=== PATIENT | male | born 1960 | race Caucasian/White ===

== ENCOUNTER 2017-01-01 16:27 | Emergency (ER) | payer BC, MEDICAID ==
[2017-01-01 16:53] VITALS: BP 158/95
[2017-01-01] MEDS ORDERED: Lidocaine 2% Viscous Solution 15 ML Cup PO ONE (16:55)
[2017-01-01] MEDS ORDERED: Benzocaine 20% Topical Spray UD MUCMEM ONE (16:55)
--- NOTE | 2017-01-01 17:21 | EDM.PDOC ---
<Lonny Hemphilleet - Last Filed: 01/01/17 17:22> ED HPI GENERAL MEDICAL PROBLEM - General Chief Complaint: ENT Problem Stated Complaint: PT HAS TOOTHACHE Time Seen by Provider: 01/01/17 16:30 - History of Present Illness INITIAL COMMENTS - FREE TEXT/NARRATIVE: This is a 48 year old male with a past medical history significant for type 2 diabetes presenting to the ER complaining of tooth pain. Patient states that he has had poor dentition for the last 20 years. He tells me that he had a tooth extraction 20 years ago by a dentist which resulted in only partial removal of the tooth. He has been experiencing constant pain in that location ever since. The pain is located over his third molar, radiating to his left ear. The pain is exacerbated with any sort of palpation of the surrounding area or chewing on food. He tells me that he has been taking Motrin over the counter 5-6x per day for the past week that has been mildly helping. He denies any fevers, chills, nausea, or vomiting. Left Lower Tooth/Teeth Pain Score (Numeric/FACES): 8 - Related Data Allergies Allergy/AdvReac Type Severity Reaction Status Date / Time No Known Allergies Allergy Verified 01/01/17 16:41 Home Meds: Home Meds Amoxicillin 500 mg PO BID #14 tab 01/01/17 [Rx] Aspirin 1 tab PO DAILY 01/01/17 [History] Insulin Aspart [NovoLOG] 01/01/17 [History] Insulin Glarg,Human.Rec.Analog [Lantus] 01/01/17 [History] Lisinopril 25 mg PO DAILY 01/01/17 [History] Past Medical History Endocrine/Metabolic History: Reports: Diabetes, Type II - Infectious Disease History Infectious Disease History: Reports: Chicken Pox - Past Surgical History GI Surgical History: Reports: Appendectomy, Cholecystectomy Social & Family History - Tobacco Use Smoking Status *Q: Never Smoker Second Hand Smoke Exposure: No ED ROS ENT - Review of Systems Constitutional: Denies: Fever, Chills, Weakness, Fatigue HEENT: Reports: Dental Pain. Denies: Eye Pain, Throat Pain, Throat Swelling, Vision Change Respiratory: Denies: Shortness of Breath, Wheezing, Pleuritic Chest Pain, Cough Cardiovascular: Denies: Chest Pain, Blood Pressure Problem Endocrine: Reports: Other (Poorly controlled type 2 diabetes) GI/Abdominal: Denies: Abdominal Pain, Diarrhea, Decreased Appetite, Nausea, Vomiting Musculoskeletal: Denies: Neck Pain, Shoulder Pain ED EXAM, ENT - Physical Exam Exam Limited By: No Limitations General Appearance: Alert, WD/WN, No Apparent Distress Eye Exam: Bilateral Eye: EOMI, PERRL Ears: Normal External Exam, Normal Canal, Hearing Grossly Normal, Normal TMs Nose: Normal Inspection, Normal Mucousa, No Blood Mouth/Throat: Gum Swelling, Other (Very poor dentition appreciated. Pain reproducible from soft palpation over the third molar. No obvious abscess visualized. No active bleeding. Throat was clear without erythema or exudates. Oral mucosa appears moist, pink.) Head: Atraumatic, Normocephalic Neck: Other (Tenderness to palpation over the left jaw and neck anteriorly. + anterior cervical lymphadenopathy appreciated on left side.) Respiratory/Chest: No Respiratory Distress, Lungs Clear, Normal Breath Sounds, No Accessory Muscle Use Cardiovascular: Normal Peripheral Pulses, Regular Rate, Rhythm, No Edema, No JVD GI/Abdominal: Normal Bowel Sounds, Soft, No Organomegaly Extremities: Normal Inspection, Normal Range of Motion, Non-Tender Neurological: Alert, Oriented Course - Vital Signs Last Recorded V/S: Last Vital Signs Temp 36.5 C 01/01/17 16:43 Pulse 83 01/01/17 16:43 Resp 18 01/01/17 16:43 BP 158/95 H 01/01/17 16:43 Pulse Ox 99 01/01/17 16:43 - Orders/Labs/Meds Meds: Medications Discontinued Medications Generic Name Dose Route Start Last Admin Trade Name Agustinq PRN Reason Stop Dose Admin Benzocaine 2 each 01/01/17 16:55 01/01/17 17:10 Hurricaine One 20% MUCMEM 01/01/17 16:56 2 each ONETIME ONE Administration Lidocaine HCl 15 ml 01/01/17 16:55 01/01/17 17:10 Xylocaine 2% Viscous PO 01/01/17 16:56 15 ml ONETIME ONE Administration Departure - Departure Time of Disposition: 18:30 Disposition: Home, Self-Care 01 Condition: Good Clinical Impression: Tooth pain - Discharge Information Prescriptions: Amoxicillin 500 mg PO BID #14 tab Instructions: Dental Care and Dentist Visits Referrals: PCP,None [Primary Care Provider] - 1 Day (Follow up with Dr. Marcin Hemphill at the residency clinic. ) Forms: ED Department Discharge Additional Instructions: The following information is given to patients seen in the emergency department who are being discharged to home. This information is to outline your options for follow-up care. We provide all patients seen in our emergency department with a follow-up referral. The need for follow-up, as well as the timing and circumstances, are variable depending upon the specifics of your emergency department visit. If you don't have a primary care physician on staff, we will provide you with a referral. We always advise you to contact your personal physician following an emergency department visit to inform them of the circumstance of the visit and for follow-up with them and/or the need for any referrals to a consulting specialist. The emergency department will also refer you to a specialist when appropriate. This referral assures that you have the opportunity for followup care with a specialist. All of these measure are taken in an effort to provide you with optimal care, which includes your followup. Under all circumstances we always encourage you to contact your private physician who remains a resource for coordinating your care. When calling for followup care, please make the office aware that this follow-up is from your recent emergency room visit. If for any reason you are refused follow-up, please contact the [facility] emergency department at and ask to speak to the emergency department charge nurse. [facility] Primary care- [place] [address] Please take antibiotics as prescribed and use dental balls you have been given today as shown. Please call the clinic tomorrow to follow-up with Dr. Hemphill as he discussed with you. Return to ER as needed and as discussed <Jennifer Mclean - Last Filed: 01/01/17 17:44> ED HPI GENERAL MEDICAL PROBLEM - History of Present Illness INITIAL COMMENTS - FREE TEXT/NARRATIVE: This is Dr. Mclean dictating an addendum note as supervising physician on this case. I agree with history and physical as above and I personally seen and examined this patient. He doesn't have any visible facial swelling but he does have some anterior cervical adenopathy. The area of the molar in question is mildly swollen but not fluctuant and there appears to be a piece of remnant tooth in this region. The patient does have a history of diabetes and says that his blood sugar tends to run in the 300s and this is not atypical for him. He doesn't want evaluation for his diabetes and referred to follow up in the clinic and he will be following up with Dr. Hemphill in his clinic for further evaluation and care of this problem. We will treat his dental issues with amoxicillin and dental balls. Impression dental pain/early dental infection due to impacted tooth remnant ED ROS ENT - Review of Systems Review Of Systems: ROS reveals no pertinent complaints other than HPI. ED EXAM, ENT - Physical Exam Exam: See Below (See dictation)
== END 2017-01-01 17:46 | disposition home or self-care (01) ==
LOC: EDBD → MW.ED 16:27
DX: K08.89 Other specified disorders of teeth and supporting structures (principal); E11.9 Type 2 diabetes mellitus without complications; Z79.82 Long term (current) use of aspirin; Z79.4 Long term (current) use of insulin; Z79.899 Other long term (current) drug therapy; Z90.49 Acquired absence of other specified parts of digestive tract
CPT/HCPCS: 99282; A9270; 99283

== ENCOUNTER 2017-01-23 09:22 | Emergency (ER) | payer MEDICAID, OTHER ==
[2017-01-23] MEDS ORDERED: Ketorolac 60 MG/2 ML SDV IM ONE (09:44)
--- NOTE | 2017-01-23 09:44 | EDM.PDOC ---
ED HPI GENERAL MEDICAL PROBLEM - General Chief Complaint: Back Pain or Injury Stated Complaint: LOWER BACK PAIN Time Seen by Provider: 01/23/17 09:32 - History of Present Illness INITIAL COMMENTS - FREE TEXT/NARRATIVE: HISTORY AND PHYSICAL: History of present illness: Patient's 48-year-old white male presents with concern of back injury states he was lifting a tire at work and he turned and has some discomfort on his right lower back and left upper back he's had similar episodes in the past is no numbness no weakness no incontinence or potential bowel or bladder was no direct trauma Review of systems: As per history of present illness and below otherwise all systems reviewed and negative. Past medical history: As per history of present illness and as reviewed below otherwise noncontributory. Surgical history: As per history of present illness and as reviewed below otherwise noncontributory. Social history: No reported history of drug or alcohol abuse. Family history: As per history of present illness and as reviewed below otherwise noncontributory. Physical exam: HEENT: Atraumatic, normocephalic, pupils reactive, negative for conjunctival pallor or scleral icterus, mucous membranes moist, throat clear, neck supple, nontender, trachea midline. Lungs: Clear to auscultation, breath sounds equal bilaterally, chest nontender. Heart: S1S2, regular, negative for clicks, rubs, or JVD. Abdomen: Soft, nondistended, nontender. Negative for masses or hepatosplenomegaly. Negative for costovertebral tenderness. Pelvis: Stable nontender. Genitourinary: Deferred. Rectal: Deferred. Extremities: Atraumatic, negative for cords or calf pain. Neurovascular unremarkable. Neuro: Awake, alert, oriented. Cranial nerves II through XII unremarkable. Cerebellum unremarkable. Motor and sensory unremarkable throughout. Exam nonfocal. Back: Patient is some mild paravertebral tenderness in the left thoracic spine and paravertebral tenderness of the right lumbar spine is no vertebral body or point tenderness patient able stand on his toes back on his heels deep tendon reflexes motor and sensory are normal Diagnostics: X-ray thoracic spine x-ray lumbar spine Therapeutics: Toradol 60 mg IM Impression: #1 thoracic or lumbar strain Definitive disposition and diagnosis as appropriate pending reevaluation and review of above. Right Back Pain Score (Numeric/FACES): 10 - Related Data Allergies Allergy/AdvReac Type Severity Reaction Status Date / Time No Known Allergies Allergy Verified 01/23/17 09:38 Home Meds: Home Meds Amoxicillin 500 mg PO BID #14 tab 01/01/17 [Rx] Aspirin 1 tab PO DAILY 01/01/17 [History] Insulin Aspart [NovoLOG] 01/01/17 [History] Insulin Glarg,Human.Rec.Analog [Lantus] 01/01/17 [History] Lisinopril 25 mg PO DAILY 01/01/17 [History] Past Medical History Endocrine/Metabolic History: Reports: Diabetes, Type II - Infectious Disease History Infectious Disease History: Reports: Chicken Pox - Past Surgical History GI Surgical History: Reports: Appendectomy, Cholecystectomy Social & Family History - Family History Family Medical History: Noncontributory - Tobacco Use Smoking Status *Q: Light Tobacco Smoker Years of Tobacco use: 20 Packs/Tins Daily: 1 Second Hand Smoke Exposure: No - Caffeine Use Caffeine Use: Reports: None - Recreational Drug Use Recreational Drug Use: No ED ROS GENERAL - Review of Systems Review Of Systems: ROS reveals no pertinent complaints other than HPI. ED EXAM, GENERAL - Physical Exam Exam: See Below (See dictation) Course - Vital Signs Last Recorded V/S: Last Vital Signs Temp 36.6 C 01/23/17 09:36 Pulse 95 01/23/17 09:36 Resp 20 01/23/17 09:36 BP 181/97 H 01/23/17 09:36 Pulse Ox 95 01/23/17 09:36 Departure - Departure Time of Disposition: 09:43 Disposition: Home, Self-Care 01 Condition: Good Clinical Impression: Back pain, Back pain of thoracolumbar region - Discharge Information Referrals: PCP,None [Primary Care Provider] - Additional Instructions: The following information is given to patients seen in the emergency department who are being discharged to home. This information is to outline your options for follow-up care. We provide all patients seen in our emergency department with a follow-up referral. The need for follow-up, as well as the timing and circumstances, are variable depending upon the specifics of your emergency department visit. If you don't have a primary care physician on staff, we will provide you with a referral. We always advise you to contact your personal physician following an emergency department visit to inform them of the circumstance of the visit and for follow-up with them and/or the need for any referrals to a consulting specialist. The emergency department will also refer you to a specialist when appropriate. This referral assures that you have the opportunity for followup care with a specialist. All of these measure are taken in an effort to provide you with optimal care, which includes your followup. Under all circumstances we always encourage you to contact your private physician who remains a resource for coordinating your care. When calling for followup care, please make the office aware that this follow-up is from your recent emergency room visit. If for any reason you are refused follow-up, please contact the [facility] emergency department at and asked to speak to the emergency department charge nurse. [id number] [address] [place] [id number] Motrin/Tylenol as directed follow-up clinic above call to schedule routine appointment return as needed as discussed
--- NOTE | 2017-01-23 11:09 | CR ---
EXAMINATION: Lumbar and thoracolumbar radiographs HISTORY: Pain COMPARISON: None TECHNIQUE: AP and lateral views FINDINGS: The thoracolumbar spinal alignment appears normal. The vertebral body heights appear mainta ined. There is no fracture or dislocation. The SI joints are symmetric. Bone mineralization is normal . Mild marginal osteophytes are noted. Clips project over the right upper quadrant. IMPRESSION: No acute osseous abnormalities identified.
[2017-01-23 11:32] VITALS: BP 162/97
== END 2017-01-23 11:30 | disposition home or self-care (01) ==
LOC: MW.ED 09:22
DX: S39.012A Strain of muscle, fascia and tendon of lower back, initial encounter (principal); S29.012A Strain of muscle and tendon of back wall of thorax, initial encounter; E11.9 Type 2 diabetes mellitus without complications; F17.210 Nicotine dependence, cigarettes, uncomplicated; Z79.4 Long term (current) use of insulin; Z79.82 Long term (current) use of aspirin; Z79.899 Other long term (current) drug therapy; Z90.49 Acquired absence of other specified parts of digestive tract; X50.0XXA Overexertion from strenuous movement or load, initial encounter
CPT/HCPCS: 72080; 72100; 96372; 99283; J1885; 99282

== ENCOUNTER 2020-09-27 11:23 | Emergency (ER) | payer MEDICAID ==
--- NOTE | 2020-09-27 11:31 | EDM.PDOC ---
<Jefry Thao - Last Filed: 09/27/20 12:44> ED HPI GENERAL MEDICAL PROBLEM - General Chief Complaint: General Stated Complaint: COUGHING SOB Time Seen by Provider: 09/27/20 11:30 - History of Present Illness INITIAL COMMENTS - FREE TEXT/NARRATIVE: This is a 52-year-old man with a past medical history of diabetes mellitus, hypertension who presents to the emergency department with epigastric and right upper quadrant pain and diaphoresis. I was involved in care as initial EKG showed STEMI. At the time of my evaluation the patient appeared comfortable and was mildly diaphoretic. On hospital monitor the patient was sinus rhythm without any tachycardia. Pulse oximetry with good waveform was appropriate at 98% on room air. Time: 1158 Twelve-lead EKG interpreted by myself. [Normal sinus rhythm] at a rate of 80 beats per minute. [Normal] axis. MA interval is 135 ms. QRS duration is [address] segments are elevated greater than 1 mm in leads II, 3, aVF without any obvious reciprocal changes.. [No T wave inversions] [No Q waves present]. [Hypertrophy not noted]. No prior EKGs in our system. Interpretation: Acute inferior ST elevation PR After the initial EKG I did contact [facility] in [place] and spoke with Dr. Mcconnell who reviewed the EKG and recommended aspirin, TNKase given that there is no Q waves in the patient will be flown taking greater than 90 minutes to arrive for PCI, and heparin. We did discuss antiplatelet and at this time he does not recommend Brilinta or Plavix at this time. Celeste Betts [facility] contacted emergency department Dr. Sweeney who is aware of the patient transfer. We did contact [employer] and there estimated time of arrival at our emergency department is 20 minutes. I did review contraindications to TNKase with the patient and he has no absolute contraindication at this time. Consent was obtained and is placed in chart. After TNKase administration we did obtain a repeat EKG. At this time flight was at bedside for transport. Time: 1230 Twelve-lead EKG interpreted by myself. [Normal sinus rhythm] at a rate of 78 beats per minute. [Normal] axis. MA interval is 141 ms. QRS duration is [address] segments are elevated greater than 1 mm in leads II, 3, aVF without any obvious reciprocal changes.. [No T wave inversions] [No Q waves present]. [Hypertrophy not noted]. [No changes demonstrated from prior EKG dated] today. Interpretation: Acute inferior ST elevation PR The radiological images were viewed by myself along with reading the report from the radiologist. Chest x-ray does not reveal any acute cardiopulmonary process. DISPOSITION: The patient was flown to [facility] in [place] in stable but serious condition CONDITION: Serious PROCEDURES: TNKase administration, cardiac monitoring interpretation, pulse oximetry interpretation FINAL IMPRESSION(S)/DIAGNOSES: 1. Acute ST elevation PR, inferior Jefry Thao M.D. Critical Care Procedure Note Authorized and performed by: Jefry Thao M.D. Critical Care Time: 35 minutes Due to a high probability of clinically significant, life threatening deterioration, the patient required my highest level of preparedness to intervene emergently and I personally spent this critical care time directly and personally managing the patient. This critical care time included obtaining a history, examining the patient, pulse oximetry; ordering and review of studies; arranging urgent treatment with development of a management plan; evaluation of a patients reponse to treatment; frequent assessment; and discussions with other providers. This critical care time was performed to assess and manage the high probability of imminent, life threatening deterioration that could result in multiorgan failure. It was exclusive of separate billable procedures and treating other patients. Please see MDM section and rest of the note for further information on patient assessment and treatment. Please see MDM section and rest of the note for further information on patient assessment and treatment. - Related Data Allergies Allergy/AdvReac Type Severity Reaction Status Date / Time diphenhydramine Allergy Hives Verified 09/27/20 11:41 [From Benadryl] Home Meds: Home Meds Aspirin 1 tab PO DAILY 01/01/17 [History] Insulin Aspart [NovoLOG] 40 units SQ BEDTIME 01/01/17 [History] Insulin Glarg,Human.Rec.Analog [Lantus] 0 injection SQ TIDMEALS 01/01/17 [History] Lisinopril 10 mg PO DAILY 01/01/17 [History] Gabapentin [Neurontin] 600 mg PO TID 09/27/20 [History] glipiZIDE [Glucotrol XL] 10 mg PO DAILY 09/27/20 [History] metFORMIN [Glucophage XR] 1,000 mg PO BID 09/27/20 [History] Departure - Departure Disposition: DC/Tfer to [facility] Clinical Impression: STEMI (ST elevation myocardial infarction) Qualifiers: Involved coronary artery: unspecified coronary artery Qualified Code(s): I21.3 - ST elevation (STEMI) myocardial infarction of unspecified site - Discharge Information Referrals: PCP,None [Primary Care Provider] - Forms: ED Department Discharge <Josep Betts Neda - Last Filed: 09/27/20 12:51> ED HPI GENERAL MEDICAL PROBLEM - General Source of Information: Reports: Patient History Limitations: Reports: No Limitations - History of Present Illness INITIAL COMMENTS - FREE TEXT/NARRATIVE: HISTORY AND PHYSICAL: History of present illness: Patient is a 52-year-old male who presents to the emergency room with complaints of cough, right upper abd/epigastric/lower mid-sternal chest wall pain, subjective fever/chills, and diarrhea over the past 7 days. Patient states that he has a "chest cold" and is coughing frequently. He does appear diaphoretic, he states that he has subjective fever and chills although has not checked his temperature at any point. He is pointing to his right upper quadrant into his epigastric/lower mid sternum and states he has had pain here for the past 1 week. He also attributes the pain to having frequent loose stools. Patient states he occasionally has pain to left posterior neck (on going for 6 months) and will occasionally have pain when he turns his neck with some vision changes. Patient denies any headache, syncope or near syncope. Denies any hemoptysis, shortness of breath or cough. Denies any nausea, vomiting, constipation or dysuria. Has not noted any blood in urine or stool. Patient has been eating and drinking appropriately. PMH of HTN and type II diabetes. Review of systems: As per history of present illness and below otherwise all systems reviewed and negative. Past medical history: As per history of present illness and as reviewed below otherwise noncontributory. Surgical history: As per history of present illness and as reviewed below otherwise noncontributory. Social history: See social history for further information Family history: As per history of present illness and as reviewed below otherwise noncontributory. Physical exam: General: Well developed and well nourished 52 year old male. Alert and orientated x 3. Patient appears diaphoretic but nontoxic. Vital signs have been reviewed by me, blood pressure is elevate (history of HTN). Nursing notes were reviewed. HEENT: Atraumatic, normocephalic, pupils equal and reactive bilaterally, negative for conjunctival pallor or scleral icterus, mucous membranes tacky/dry, TMs normal bilaterally, throat clear, neck supple, nontender, trachea midline. No drooling or trismus noted. No meningeal signs. No hot potato voice noted. Lungs: Clear to auscultation bilaterally. No wheezes, rales, or rhonchi. Midsternal chest tenderness. Normal work of breathing, no accessory muscles used. Heart: S1S2, regular rate and rhythm without overt murmur, gallops, or rubs. No JVD. No peripheral edema Abdomen: Soft, nondistended, right upper quadrant tenderness/epigastric tenderness. Normoactive bowel sounds. Negative for masses or costovertebral tenderness. Skin: Diaphoretic, intact, warm to touch. No lesions or rashes noted. Hematologic: No petechiae or purpra. Mucosa appropriate color and normal nail bed color and refill. Extremities: Atraumatic, moves all extremities per self without difficulty or deficits, negative for cords or calf pain. Neurovascular unremarkable. Neuro: Awake, alert, oriented. Cranial nerves II through XII unremarkable. Cerebellum unremarkable. Motor and sensory unremarkable throughout. Exam nonfocal. Psychiatric: Mood and affect are appropriate. Normal thought process. Answering questions appropriately. Notes: *This patient was seen and evaluated during the 2019 SARS-CoV-2 novel coronavirus pandemic period. Community viral transmission is ongoing at time of this encounter and the emergency department is operating under pandemic response procedures. Patient's EKG shows ST elevation in II, III, AVF. No previous EKG's available for comparison. I did have Dr Thao involved in this case as he has now become more complex. Consulted with Dr Sweeney and Dr Mcconnell at [facility] in [place] for transfer. Patient is aware of seriousness of findings and need for transfer. Dr Mcconnell has given some additional recommendations (see Dr Thao's note). Patient will be transfered to [facility] via flight crew. Diagnostics: CBC, CMP, Lipase, Troponin, PT/INR, CXR, EKG, COVID, IV x2, [employer]: ASA, Heparin, TNKase, IV Impression: STEMI Plan: Transfer to [facility] in [place] via flight Definitive disposition and diagnosis as appropriate pending reevaluation and review of above. epigastric Pain Score (Numeric/FACES): 10 Past Medical History Endocrine/Metabolic History: Reports: Diabetes, Type II - Infectious Disease History Infectious Disease History: Reports: Chicken Pox - Past Surgical History GI Surgical History: Reports: Appendectomy, Cholecystectomy Social & Family History - Family History Family Medical History: No Pertinent Family History - Caffeine Use Caffeine Use: Reports: None ED ROS GENERAL - Review of Systems Review Of Systems: Comprehensive ROS is negative, except as noted in HPI. ED EXAM, GENERAL - Physical Exam Exam: See Below (See dictation) Course - Vital Signs Last Recorded V/S: Last Vital Signs Temp 95.1 F L 09/27/20 11:43 Pulse 81 09/27/20 11:43 Resp 18 09/27/20 11:43 BP 149/112 H 09/27/20 11:43 Pulse Ox 97 09/27/20 11:43 - Orders/Labs/Meds Orders: Active Orders 24 hr Category Date Time Status EKG Documentation Completion [RC] STAT Care 09/27/20 11:49 Active COMPREHENSIVE METABOLIC PN,CMP [CHEM] Stat Lab 09/27/20 11:57 Received COVID-19/FLU A+B [MOLEC] Stat Lab 09/27/20 11:49 Ordered LIPASE [CHEM] Stat Lab 09/27/20 11:57 Received PTT,PARTIAL THROMBOPLSTIN TIME [COAG] Q6 Lab 09/27/20 12:30 Ordered PTT,PARTIAL THROMBOPLSTIN TIME [COAG] Q6 Lab 09/27/20 18:30 Ordered PTT,PARTIAL THROMBOPLSTIN TIME [COAG] Q6 Lab 09/28/20 00:30 Ordered PTT,PARTIAL THROMBOPLSTIN TIME [COAG] Q6 Lab 09/28/20 06:30 Ordered PTT,PARTIAL THROMBOPLSTIN TIME [COAG] Q6 Lab 09/28/20 12:30 Ordered PTT,PARTIAL THROMBOPLSTIN TIME [COAG] Q6H Lab 09/28/20 18:30 Ordered PTT,PARTIAL THROMBOPLSTIN TIME [COAG] Q6 Lab 09/29/20 00:30 Ordered TROPONIN I [CHEM] Stat Lab 09/27/20 11:57 Received UA RFX JAC AND CULT IF INDIC [URIN] Stat Lab 09/27/20 11:49 Ordered Heparin Sodium/0.45% NaCl [Heparin 25,000 Units in 1/2 Med 09/27/20 12:30 Active NS 500 ML] 500 ml IV TITRATE Sodium Chloride 0.9% [Normal Saline] 1,000 ml Med 09/27/20 11:49 Active IV STAT Sodium Chloride 0.9% [Saline Flush] Med 09/27/20 12:03 Active 10 ml FLUSH ASDIRECTED PRN Sodium Chloride 0.9% [Saline Flush] Med 09/27/20 12:03 Active 2.5 ml FLUSH ASDIRECTED PRN Saline Lock Insert [OM.PC] Stat Oth 09/27/20 12:03 Ordered Medication Orders Sodium Chloride (Normal Saline) 1,000 mls @ 999 mls/hr IV STAT ONE Stop: 09/27/20 12:49 Last Admin: 09/27/20 12:06 Dose: 999 mls/hr Documented by: CALEB Heparin Sodium/Sodium Chloride (Heparin 25,000 Units In 1/2 Ns 500 Ml) 500 mls @ 19.595 mls/hr IV TITRATE TIMOTHY; Protocol Sodium Chloride (Sodium Chloride 0.9% 10 Ml Syringe) 10 ml FLUSH ASDIRECTED PRN PRN Reason: Keep Vein Open Last Admin: 09/27/20 12:07 Dose: 10 ml Documented by: CALEB Sodium Chloride (Sodium Chloride 0.9% 2.5 Ml Syringe) 2.5 ml FLUSH ASDIRECTED PRN PRN Reason: Keep Vein Open Last Admin: 09/27/20 12:07 Dose: 2.5 ml Documented by: CALEB Labs: Laboratory Tests 09/27/20 09/27/20 Range/Units 11:57 11:57 WBC 10.36 (4.0-11.0) K/uL RBC 5.09 (4.50-5.90) M/uL Hgb 15.3 (13.0-17.0) g/dL Hct 44.7 (38.0-50.0) % MCV 87.8 (80.0-98.0) fL MCH 30.1 (27.0-32.0) pg MCHC 34.2 (31.0-37.0) g/dL RDW Std Deviation 42.1 (28.0-62.0) fl RDW Coeff of Do 13 (11.0-15.0) % Plt Count 357 (150-400) K/uL MPV 9.50 (7.40-12.00) fL Neut % (Auto) 69.1 (48.0-80.0) % Lymph % (Auto) 20.1 (16.0-40.0) % [place] % (Auto) 7.4 (0.0-15.0) % Eos % (Auto) 3.1 (0.0-7.0) % Baso % (Auto) 0.3 (0.0-1.5) % Neut # (Auto) 7.2 H (1.4-5.7) K/uL Lymph # (Auto) 2.1 (0.6-2.4) K/uL [place] # (Auto) 0.8 (0.0-0.8) K/uL Eos # (Auto) 0.3 (0.0-0.7) K/uL Baso # (Auto) 0.0 (0.0-0.1) K/uL Nucleated RBC % 0.0 /100WBC Nucleated RBCs # 0 K/uL INR 1.00 APTT 24.6 (18.6-31.3) SEC Meds: Medications Generic Name Dose Route Start Last Admin Trade Name Freq PRN Reason Stop Dose Admin Sodium Chloride 1,000 mls @ 999 mls/hr 09/27/20 11:49 09/27/20 12:06 Normal Saline IV 09/27/20 12:49 999 mls/hr STAT ONE Administration Heparin Sodium/Sodium Chloride 500 mls @ 19.595 mls/hr 09/27/20 12:30 Heparin 25,000 Units In 1/2 Ns 500 Ml IV TITRATE TIMOTHY Protocol 12 UNITS/KG/HR Sodium Chloride 10 ml 09/27/20 12:03 09/27/20 12:07 Sodium Chloride 0.9% 10 Ml Syringe FLUSH 10 ml ASDIRECTED PRN Administration Keep Vein Open Sodium Chloride 2.5 ml 09/27/20 12:03 09/27/20 12:07 Sodium Chloride 0.9% 2.5 Ml Syringe FLUSH 2.5 ml ASDIRECTED PRN Administration Keep Vein Open Discontinued Medications Generic Name Dose Route Start Last Admin Trade Name Shelly PRN Reason Stop Dose Admin Aspirin 324 mg 09/27/20 12:03 09/27/20 12:06 Aspirin 81 Mg Tab.Chew PO 09/27/20 12:04 324 mg ONETIME ONE Administration Heparin Sodium (Porcine) Confirm 09/27/20 12:21 Heparin Sodium 5,000 Units/Ml Vial Administered 09/27/20 12:22 Dose 5,000 units .ROUTE .STK-MED ONE Heparin Sodium/Sodium Chloride Confirm 09/27/20 12:21 Heparin 25,000 Units In 1/2 Ns 500 Ml Administered 09/27/20 12:22 Dose 500 mls @ as directed .ROUTE .STK-MED ONE Tenecteplase Confirm 09/27/20 12:21 Tenecteplase 50 Mg Kit Administered 09/27/20 12:22 Dose 50 mg .ROUTE .STK-MED ONE Departure - Departure Time of Disposition: 12:40 Sepsis Event Note (ED) - Focused Exam Vital Signs: Vital Signs Temp Pulse Resp BP Pulse Ox 09/27/20 11:43 95.1 F L 81 18 149/112 H 97 - My Orders Last 24 Hours: My Active Orders 09/27/20 11:49 EKG Documentation Completion [RC] STAT COVID-19/FLU A+B [MOLEC] Stat UA RFX JAC AND CULT IF INDIC [URIN] Stat Sodium Chloride 0.9% [Normal Saline] 1,000 ml IV STAT 09/27/20 11:57 COMPREHENSIVE METABOLIC PN,CMP [CHEM] Stat LIPASE [CHEM] Stat TROPONIN I [CHEM] Stat 09/27/20 12:03 Sodium Chloride 0.9% [Saline Flush] 10 ml FLUSH ASDIRECTED PRN Sodium Chloride 0.9% [Saline Flush] 2.5 ml FLUSH ASDIRECTED PRN Saline Lock Insert [OM.PC] Stat - Assessment/Plan Last 24 Hours: My Active Orders 09/27/20 11:49 EKG Documentation Completion [RC] STAT COVID-19/FLU A+B [MOLEC] Stat UA RFX JAC AND CULT IF INDIC [URIN] Stat Sodium Chloride 0.9% [Normal Saline] 1,000 ml IV STAT 09/27/20 11:57 COMPREHENSIVE METABOLIC PN,CMP [CHEM] Stat LIPASE [CHEM] Stat TROPONIN I [CHEM] Stat 09/27/20 12:03 Sodium Chloride 0.9% [Saline Flush] 10 ml FLUSH ASDIRECTED PRN Sodium Chloride 0.9% [Saline Flush] 2.5 ml FLUSH ASDIRECTED PRN Saline Lock Insert [OM.PC] Stat
[2020-09-27] MEDS ORDERED: Sodium Chloride 0.9% 1,000 ML IV ONE (11:49)
[2020-09-27] MEDS ORDERED: Sodium Chloride 0.9% 2.5 ML Syringe FLUSH PRN (12:03)
[2020-09-27] MEDS ORDERED: Sodium Chloride 0.9% 10 ML Syringe FLUSH PRN (12:03)
[2020-09-27] MEDS ORDERED: Aspirin 81 MG Tab.Chew PO ONE (12:03)
[2020-09-27] MEDS ORDERED: Heparin Sodium 5,000 Units/ML Vial ONE (12:21)
[2020-09-27] MEDS ORDERED: Tenecteplase 50 MG Kit ONE (12:21)
[2020-09-27] MEDS ORDERED: Heparin Sodium/0.45% NaCl 500 ML ONE (12:21)
[2020-09-27] MEDS ORDERED: Heparin Sodium/0.45% NaCl 500 ML IV SCH (12:30)
--- NOTE | 2020-09-27 12:40 | CR ---
INDICATION: Cough; chest pain. COMPARISON: None. TECHNIQUE: Portable AP chest. FINDINGS: Normal size cardiac silhouette. Clear lung wilcox with no evidence of acute pneumonic infiltrates or CHF. No pneumothorax or pleural effusion. IMPRESSION: Negative portable AP chest. Dictated by Froylan Desouza MD @ 09/27/2020 12:38:[address] Froylan Desouza @ Sep 27 2020 12:38PM
[2020-09-27 12:47] LABS: BLOOD UREA NITROGEN,BUN 8 mg/dL (7.0-18.0); CARBON DIOXIDE,CO2 25.7 mmol/L (21.0-32.0); CHLORIDE,CL 96 mmol/L (98-107); GLUCOSE RANDOM 456 mg/dL (74-106); LIPASE 253 U/L (73-393); POTASSIUM,K 4.8 mmol/L (3.5-5.1); SODIUM,NA 132 mmol/L (136-148)
[2020-09-27] MEDS ORDERED: Tenecteplase 50 MG Kit IV STA (13:08)
[2020-09-27] MEDS ORDERED: Heparin Sodium 5,000 Units/ML Vial IVPUSH ONE (13:08)
[2020-09-27 14:01] VITALS: BP 171/85; PULSE 79
== END 2020-09-27 12:39 ==
LOC: MW.ED 11:23
DX: I21.3 ST elevation (STEMI) myocardial infarction of unspecified site (principal); E11.9 Type 2 diabetes mellitus without complications; Z88.6 Allergy status to analgesic agent; Z79.82 Long term (current) use of aspirin; Z79.4 Long term (current) use of insulin
CPT/HCPCS: 36415; 71045; 80053; 83690; 84484; 85025; 85610; 85730; 93005; 96374; 99285; A9270; J1644; J3101; J7030; 99291

== ENCOUNTER 2020-10-22 22:13 | Observation (INO) | payer MEDICAID ==
--- NOTE | 2020-10-22 22:33 | EDM.PDOC ---
ED HPI GENERAL MEDICAL PROBLEM - General Chief Complaint: General Stated Complaint: EMS ARRIVAL Time Seen by Provider: 10/22/20 22:20 Source of Information: Reports: Patient History Limitations: Reports: No Limitations - History of Present Illness INITIAL COMMENTS - FREE TEXT/NARRATIVE: Patient is a 52-year-old male presents today for left-sided chest pain. Patient with chest pain present for the past few weeks. The pain is more of irritation does raise his left arm at times. Patient has the pain is made worse with exertion. Nothing makes pain better. Patient reports taking aspirin this morning. Patient denies any shortness of breath fever chills or cough. - Related Data Allergies Allergy/AdvReac Type Severity Reaction Status Date / Time diphenhydramine Allergy Hives Verified 10/22/20 22:17 [From Benadryl] ibuprofen [From Motrin] Allergy Hives Verified 10/22/20 22:17 Home Meds: Home Meds Aspirin 1 tab PO DAILY 01/01/17 [History] Insulin Aspart [NovoLOG] 40 units SQ BEDTIME 01/01/17 [History] Insulin Glarg,Human.Rec.Analog [Lantus] 0 injection SQ TIDMEALS 01/01/17 [History] Lisinopril 10 mg PO DAILY 01/01/17 [History] Gabapentin [Neurontin] 600 mg PO TID 09/27/20 [History] glipiZIDE [Glucotrol XL] 10 mg PO DAILY 09/27/20 [History] metFORMIN [Glucophage XR] 1,000 mg PO BID 09/27/20 [History] Past Medical History HEENT History: Reports: None Cardiovascular History: Reports: Hypertension Respiratory History: Reports: None Gastrointestinal History: Reports: Bowel Obstruction Genitourinary History: Reports: None Musculoskeletal History: Reports: None Neurological History: Reports: None Psychiatric History: Reports: None Endocrine/Metabolic History: Reports: Diabetes, Type II Hematologic History: Reports: None Immunologic History: Reports: None Oncologic (Cancer) History: Reports: None Dermatologic History: Reports: None - Infectious Disease History Infectious Disease History: Reports: Chicken Pox - Past Surgical History Head Surgeries/Procedures: Reports: None HEENT Surgical History: Reports: None Cardiovascular Surgical History: Reports: None Respiratory Surgical History: Reports: None GI Surgical History: Reports: Appendectomy, Cholecystectomy Male Surgical History: Reports: None Endocrine Surgical History: Reports: None Neurological Surgical History: Reports: None Musculoskeletal Surgical History: Reports: None Oncologic Surgical History: Reports: None Dermatological Surgical History: Reports: None Social & Family History - Family History Family Medical History: No Pertinent Family History - Tobacco Use Tobacco Use Status *Q: Never Tobacco User - Caffeine Use Caffeine Use: Reports: None - Recreational Drug Use Recreational Drug Use: Yes Drug Use in Last 12 Months: Yes Recreational Drug Type: Reports: Marijuana/Hashish Recreational Drug Use Frequency: Binges ED ROS GENERAL - Review of Systems Review Of Systems: See Below Constitutional: Reports: No Symptoms HEENT: Reports: No Symptoms Respiratory: Reports: No Symptoms Cardiovascular: Reports: Chest Pain Endocrine: Reports: No Symptoms GI/Abdominal: Reports: No Symptoms : Reports: No Symptoms Musculoskeletal: Reports: No Symptoms Skin: Reports: No Symptoms Neurological: Reports: No Symptoms Psychiatric: Reports: No Symptoms Hematologic/Lymphatic: Reports: No Symptoms Immunologic: Reports: No Symptoms ED EXAM, GENERAL - Physical Exam Exam: See Below Exam Limited By: No Limitations General Appearance: Alert, WD/WN, No Apparent Distress Respiratory/Chest: No Respiratory Distress, Lungs Clear, Normal Breath Sounds Cardiovascular: Normal Peripheral Pulses, Regular Rate, Rhythm, No Edema GI/Abdominal: Normal Bowel Sounds, Soft, Non-Tender Extremities: Normal Inspection, Normal Range of Motion Neurological: Alert, Oriented, CN II-XII Intact, Normal Cognition #1 Interpretation EKG Date: 10/22/20 Time: 22:24 Rhythm: NSR Rate (Beats/Min): 68 ST-T: Elevated #2 Interpretation EKG Date: 10/23/20 Time: 02:25 Rhythm: NSR Rate (Beats/Min): 66 ST-T: Elevated Course - Vital Signs Last Recorded V/S: Last Vital Signs Temp 97 F 10/22/20 22:18 Pulse 86 10/22/20 22:18 Resp 18 10/22/20 22:18 BP 162/81 H 10/22/20 22:18 Pulse Ox 95 10/22/20 22:18 - Orders/Labs/Meds Orders: Active Orders 24 hr Category Date Time Status EKG 12 Lead [EKG Documentation Completion] [RC] STAT Care 10/23/20 01:59 Active EKG Documentation Completion [RC] STAT Care 10/22/20 22:30 Active Labs: Laboratory Tests 05/10/22/20 10/22/20 Range/Units 22:17 22:17 22:24 WBC 10.37 (4.0-11.0) K/uL RBC 4.87 (4.50-5.90) M/uL Hgb 14.6 (13.0-17.0) g/dL Hct 43.3 (38.0-50.0) % MCV 88.9 (80.0-98.0) fL MCH 30.0 (27.0-32.0) pg MCHC 33.7 (31.0-37.0) g/dL RDW Std Deviation 45.5 (28.0-62.0) fl RDW Coeff of Do 14 (11.0-15.0) % Plt Count 190 (150-400) K/uL MPV 10.00 (7.40-12.00) fL Neut % (Auto) 39.4 L (48.0-80.0) % Lymph % (Auto) 47.1 H (16.0-40.0) % [place] % (Auto) 5.0 (0.0-15.0) % Eos % (Auto) 7.9 H (0.0-7.0) % Baso % (Auto) 0.6 (0.0-1.5) % Neut # (Auto) 4.1 (1.4-5.7) K/uL Lymph # (Auto) 4.9 H (0.6-2.4) K/uL [place] # (Auto) 0.5 (0.0-0.8) K/uL Eos # (Auto) 0.8 H (0.0-0.7) K/uL Baso # (Auto) 0.1 (0.0-0.1) K/uL Nucleated RBC % 0.0 /100WBC Nucleated RBCs # 0 K/uL Sodium 139 (136-148) mmol/L Potassium 3.9 (3.5-5.1) mmol/L Chloride 101 (98-107) mmol/L Carbon Dioxide 27.1 (21.0-32.0) mmol/L BUN 17 (7.0-18.0) mg/dL Creatinine 1.1 (0.8-1.3) mg/dL Est Cr Clr Drug Dosing 82.72 mL/min Estimated GFR (MDRD) > 60.0 ml/min Glucose 297 H (74-106) mg/dL POC Glucose 280 H (70-99) mg/dL Calcium 9.1 (8.5-10.1) mg/dL Total Bilirubin 0.2 (0.2-1.0) mg/dL AST 25 (15-37) IU/L ALT 38 (14-63) IU/L Alkaline Phosphatase 90 (46-116) U/L Creatine Kinase 99 (26-308) U/L Troponin I < 0.050 (0.000-0.056) ng/mL Total Protein 7.9 (6.4-8.2) g/dL Albumin 3.8 (3.4-5.0) g/dL Globulin 4.1 H (2.6-4.0) g/dL Albumin/Globulin Ratio 0.9 (0.9-1.6) Lipase 430 H (73-393) U/L Urine Opiates Screen (NEGATIVE) Ur Oxycodone Screen (NEGATIVE) Urine Methadone Screen (NEGATIVE) Ur Barbiturates Screen (NEGATIVE) Ur Phencyclidine Scrn (NEGATIVE) Ur Amphetamine Screen (NEGATIVE) U Methamphetamines Scrn (NEGATIVE) U Benzodiazepines Scrn (NEGATIVE) U Cocaine Metab Screen (NEGATIVE) U Marijuana (THC) Screen (NEGATIVE) SARS-CoV-2 RNA (TOMMY) (NEGATIVE) 10/23/20 10/23/20 10/23/20 Range/Units 00:15 00:23 01:00 WBC (4.0-11.0) K/uL RBC (4.50-5.90) M/uL Hgb (13.0-17.0) g/dL Hct (38.0-50.0) % MCV (80.0-98.0) fL MCH (27.0-32.0) pg MCHC (31.0-37.0) g/dL RDW Std Deviation (28.0-62.0) fl RDW Coeff of Do (11.0-15.0) % Plt Count (150-400) K/uL MPV (7.40-12.00) fL Neut % (Auto) (48.0-80.0) % Lymph % (Auto) (16.0-40.0) % [place] % (Auto) (0.0-15.0) % Eos % (Auto) (0.0-7.0) % Baso % (Auto) (0.0-1.5) % Neut # (Auto) (1.4-5.7) K/uL Lymph # (Auto) (0.6-2.4) K/uL [place] # (Auto) (0.0-0.8) K/uL Eos # (Auto) (0.0-0.7) K/uL Baso # (Auto) (0.0-0.1) K/uL Nucleated RBC % /100WBC Nucleated RBCs # K/uL Sodium (136-148) mmol/L Potassium (3.5-5.1) mmol/L Chloride (98-107) mmol/L Carbon Dioxide (21.0-32.0) mmol/L BUN (7.0-18.0) mg/dL Creatinine (0.8-1.3) mg/dL Est Cr Clr Drug Dosing mL/min Estimated GFR (MDRD) ml/min Glucose (74-106) mg/dL POC Glucose (70-99) mg/dL Calcium (8.5-10.1) mg/dL Total Bilirubin (0.2-1.0) mg/dL AST (15-37) IU/L ALT (14-63) IU/L Alkaline Phosphatase (46-116) U/L Creatine Kinase 111 (26-308) U/L Troponin I < 0.050 (0.000-0.056) ng/mL Total Protein (6.4-8.2) g/dL Albumin (3.4-5.0) g/dL Globulin (2.6-4.0) g/dL Albumin/Globulin Ratio (0.9-1.6) Lipase (73-393) U/L Urine Opiates Screen NEGATIVE (NEGATIVE) Ur Oxycodone Screen NEGATIVE (NEGATIVE) Urine Methadone Screen NEGATIVE (NEGATIVE) Ur Barbiturates Screen NEGATIVE (NEGATIVE) Ur Phencyclidine Scrn NEGATIVE (NEGATIVE) Ur Amphetamine Screen NEGATIVE (NEGATIVE) U Methamphetamines Scrn NEGATIVE (NEGATIVE) U Benzodiazepines Scrn NEGATIVE (NEGATIVE) U Cocaine Metab Screen NEGATIVE (NEGATIVE) U Marijuana (THC) Screen POSITIVE (NEGATIVE) SARS-CoV-2 RNA (TOMMY) NEGATIVE (NEGATIVE) Departure - Departure Time of Disposition: 02:02 Disposition: Home, Self-Care 01 Condition: Good Clinical Impression: Chest pain - Discharge Information *PRESCRIPTION DRUG MONITORING PROGRAM REVIEWED*: Not Applicable *COPY OF PRESCRIPTION DRUG MONITORING REPORT IN PATIENT AKBAR: Not Applicable Sepsis Event Note (ED) - Evaluation Sepsis Screening Result: No Definite Risk - Focused Exam Vital Signs: Vital Signs Temp Pulse Resp BP Pulse Ox 10/22/20 22:18 97 F 86 18 162/81 H 95 - My Orders Last 24 Hours: My Active Orders 10/22/20 22:30 EKG Documentation Completion [RC] STAT 10/23/20 01:59 EKG 12 Lead [EKG Documentation Completion] [RC] STAT - Assessment/Plan Last 24 Hours: My Active Orders 10/22/20 22:30 EKG Documentation Completion [RC] STAT 10/23/20 01:59 EKG 12 Lead [EKG Documentation Completion] [RC] STAT Plan: Patient is a 52-year-old male who presents today for chest pain for the past few weeks. Heart score of 4. Patient EKG shows some diffuse ST elevation in 2 3 aVF V5 V6 as well. Will obtain troponins and likely admit.
[2020-10-22 22:57] LABS: BLOOD UREA NITROGEN,BUN 17 mg/dL (7.0-18.0); CARBON DIOXIDE,CO2 27.1 mmol/L (21.0-32.0); CHLORIDE,CL 101 mmol/L (98-107); GLUCOSE RANDOM 297 mg/dL (74-106); LIPASE 430 U/L (73-393); POTASSIUM,K 3.9 mmol/L (3.5-5.1); SODIUM,NA 139 mmol/L (136-148)
--- NOTE | 2020-10-22 23:25 | CR ---
INDICATION: Chest pain TECHNIQUE: Chest radiograph 2 views COMPARISON: None FINDINGS: Mediastinum: The mediastinum is normal in appearance. The heart silhouette is normal in size and morphology. Lung: Both lungs are unremarkable in appearance. No sign of pleural effusion seen. No pneumothorax is identified. Bone and Soft tissue: Unremarkable for age. IMPRESSION: 1. No acute cardiopulmonary disease is seen. Dictated by: Philipp Greenfield MD @ 10/22/2020 23:23:57 (Electronically Signed)
[2020-10-23] MEDS ORDERED: Albuterol/Ipratropium 3.0-0.5 MG/3 ML Neb Soln NEB PRN (04:05)
[2020-10-23 04:07] LABS: HEMOGLOBIN A1C 11.3 %
[2020-10-23] MEDS ORDERED: Ondansetron 4 MG/2 ML SDV IVPUSH PRN (04:07)
[2020-10-23] MEDS ORDERED: 50% Dextrose in Water 50 ML Syringe IV PRN (04:08)
[2020-10-23] MEDS ORDERED: Glucagon,Human Recombinant 1 MG Vial IM PRN (04:08)
[2020-10-23] MEDS: Morphine 2 MG/ML SYRINGE IVPUSH PRN ×3 (04:29→19:34)
[2020-10-23] MEDS: Lactated Ringers 1,000 ML IV SCH ×3 (04:30→21:40)
[2020-10-23] MEDS ORDERED: Alum Hydrox/Mag Hydrox/Simeth 15 ML, Lidocaine 2% 5 ML PO ONE ×2 (04:41)
[2020-10-23] MEDS ORDERED: Heparin Sodium/0.45% NaCl 500 ML IV SCH (04:45)
--- NOTE | 2020-10-23 04:50 | PCM.SN.2 ---
- Free Text/Narrative Note: upon chart review, seems the EKG changes are chronic not acute in nature, patient was transferred to [place] last time few weeks back for similar changes, this information became known to me after admission, patient is on Eliquis, unsure why and is supposed to see cardiology on . Patient has chest pain which seems to be chronic in nature fro past few weeks associated with some "soreness", discussed case with ER physician, he reviewed the old EKG as well and compared it to the new, ST changes are chronic and infact more worse on older EKG. troponin so far have trended negative, will repeat 4th set as well. start heparin gtt for now, and will obtain records from [place] as soon as possible for review. so far it seems this is a chronic EKG change and chest pain has been chronic too, with no troponin elevation, unlikely true STEMI, will continue to monitor closely for worsening of clinical status in mean time.
[2020-10-23] MEDS ORDERED: Heparin Sodium 5,000 Units/ML Vial IVPUSH ONE (06:01)
[2020-10-23] MEDS ORDERED: Aspirin 81 MG Tab.Chew ONE (06:27)
[2020-10-23] MEDS: Aspirin 81 MG Tab.Chew PO SCH ×2 (06:31→08:41)
[2020-10-23] MEDS: Pantoprazole 40 MG in Sodium Chloride 0.9% 10 ML IV SCH (06:39)
[2020-10-23] MEDS: Insulin Aspart 100 Units/ML 3 ML Pen SUBCUT SCH ×3 (08:34→17:48)
[2020-10-23] MEDS ORDERED: Morphine 2 MG/ML SYRINGE IVPUSH ONE (08:36)
--- NOTE | 2020-10-23 09:47 | PCM.HP.2 ---
<Johanne Sonw - Last Filed: 10/23/20 17:39> H&P History of Present Illness - General Date of Service: 10/23/20 Admit Problem/Dx: Admission Diagnosis/Problem Admission Diagnosis/Problem Chest pain in adult Source of Information: Patient History Limitations: Reports: No Limitations - History of Present Illness Initial Comments - Free Text/Narative: Patient is a 52-year-old male with significant past medical history of type 2 diabetes on insulin, inferior wall FL on September 29, 2020 and a pulmonary vein thrombosis on Eliquis presenting to the ED on 10/22/2020 for syncopal episode/left-sided chest pain and left arm pain. Patient was found at home passed out and was brought to the ED via EMS. ED course: EKG shows diffuse ST elevation in leads II, 3, aVF, V5V6. Troponins x2 - aspirin 81 mg provided. Chest x-ray: No acute cardiopulmonary disease is seen. Vital signs on admission to ER: 162/81 pulse of 86. 97 temp 95% room air Hospitalist informed of EKG changes and was noted that this was not a chronic change and not acute. Patient has been transferred 4 weeks prior to my not for similar issues and had been started on Eliquis due to pulmonary vein thrombosis; this was not known until admission and records were received from my note. Troponin x4 -. Patient was started on heparin drip. Patient was admitted to the general medical floor Bedside: Patient is still complaining of left-sided chest discomfort but mostly with deep inspiration and movement. Denies any fevers, chills, body aches, shortness of breath at rest. Denies any bloody stool or bleeding otherwise. 2 mg morphine ordered given for pain control - Related Data Allergies/Adverse Reactions: Allergies Allergy/AdvReac Type Severity Reaction Status Date / Time diphenhydramine Allergy Hives Verified 10/25/20 10:17 [From Benadryl] ibuprofen [From Motrin] Allergy Hives Verified 10/25/20 10:17 Home Medications: Home Meds Aspirin 1 tab PO DAILY 01/01/17 [History] Insulin Aspart [NovoLOG] See Protocol SQ TIDMEALS 01/01/17 [History] Insulin Glarg,Human.Rec.Analog [Lantus] 32 units SQ BID 01/01/17 [History] Gabapentin [Neurontin] 600 mg PO TID 09/27/20 [History] glipiZIDE [Glucotrol XL] 10 mg PO DAILY 09/27/20 [History] metFORMIN [Glucophage XR] 1,000 mg PO BID 09/27/20 [History] Apixaban [Eliquis] 1 tab PO BID 10/23/20 [History] Cyclobenzaprine [Flexeril] 10 mg PO TID 10/23/20 [History] lisinopriL [Lisinopril] 40 mg PO DAILY 10/23/20 [History] atorvaSTATin [Lipitor] 40 mg PO BEDTIME #30 tablet 10/24/20 [Rx] oxyCODONE 5 mg PO Q8H PRN #15 tablet 10/24/20 [Rx] Past Medical History HEENT History: Reports: None Cardiovascular History: Reports: Hypertension Respiratory History: Reports: None Gastrointestinal History: Reports: Bowel Obstruction Genitourinary History: Reports: None Musculoskeletal History: Reports: None Neurological History: Reports: None Psychiatric History: Reports: None Endocrine/Metabolic History: Reports: Diabetes, Type II Hematologic History: Reports: None Immunologic History: Reports: None Oncologic (Cancer) History: Reports: None Dermatologic History: Reports: None - Infectious Disease History Infectious Disease History: Reports: Chicken Pox - Past Surgical History Head Surgeries/Procedures: Reports: None HEENT Surgical History: Reports: None Cardiovascular Surgical History: Reports: None Respiratory Surgical History: Reports: None GI Surgical History: Reports: Appendectomy, Cholecystectomy Male Surgical History: Reports: None Endocrine Surgical History: Reports: None Neurological Surgical History: Reports: None Musculoskeletal Surgical History: Reports: None Oncologic Surgical History: Reports: None Dermatological Surgical History: Reports: None Social & Family History - Family History Family Medical History: No Pertinent Family History - Tobacco Use Tobacco Use Status *Q: Never Tobacco User - Caffeine Use Caffeine Use: Reports: Coffee - Recreational Drug Use Recreational Drug Use: Yes Drug Use in Last 12 Months: Yes Recreational Drug Type: Reports: Marijuana/Hashish Recreational Drug Use Frequency: Binges H&P Review of Systems - Review of Systems: Review Of Systems: See Below General: Reports: No Symptoms HEENT: Reports: No Symptoms Pulmonary: Reports: Shortness of Breath, Pleuritic Chest Pain. Denies: Cough Cardiovascular: Reports: Chest Pain. Denies: Palpitations, Dyspnea on Exertion, Orthopnea, Edema Gastrointestinal: Reports: No Symptoms Genitourinary: Reports: No Symptoms Musculoskeletal: Reports: No Symptoms Skin: Reports: No Symptoms Neurological: Reports: No Symptoms Exam - Exam Exam: See Below - Vital Signs Vital Signs: Last Vital Signs Temp 97.9 F 10/23/20 09:00 Pulse 64 10/23/20 09:00 Resp 20 10/23/20 09:00 BP 135/71 10/23/20 09:00 Pulse Ox 97 10/23/20 09:00 Weight: 84.323 kg - Exam General: Alert, Oriented HEENT: EOMI Neck: Supple, Trachea Midline Lungs: Normal Respiratory Effort Cardiovascular: Regular Rate, Regular Rhythm, Other (no pericardial friction rub noted in supine/upright/leaning forward position ) GI/Abdominal Exam: Soft, Non-Tender Extremities: Normal Inspection Neuro Extensive - Mental Status: Alert, Oriented x3 Psychiatric: Alert, Normal Mood - Patient Data Lab Results Last 24 hrs: Laboratory Results - last 24 hr 10/22/20 10/22/20 10/22/20 Range/Units 22:17 22:17 22:24 WBC 10.37 (4.0-11.0) K/uL RBC 4.87 (4.50-5.90) M/uL Hgb 14.6 (13.0-17.0) g/dL Hct 43.3 (38.0-50.0) % MCV 88.9 (80.0-98.0) fL MCH 30.0 (27.0-32.0) pg MCHC 33.7 (31.0-37.0) g/dL RDW Std Deviation 45.5 (28.0-62.0) fl RDW Coeff of Do 14 (11.0-15.0) % Plt Count 190 (150-400) K/uL MPV 10.00 (7.40-12.00) fL Neut % (Auto) 39.4 L (48.0-80.0) % Lymph % (Auto) 47.1 H (16.0-40.0) % [place] % (Auto) 5.0 (0.0-15.0) % Eos % (Auto) 7.9 H (0.0-7.0) % Baso % (Auto) 0.6 (0.0-1.5) % Neut # (Auto) 4.1 (1.4-5.7) K/uL Lymph # (Auto) 4.9 H (0.6-2.4) K/uL [place] # (Auto) 0.5 (0.0-0.8) K/uL Eos # (Auto) 0.8 H (0.0-0.7) K/uL Baso # (Auto) 0.1 (0.0-0.1) K/uL Nucleated RBC % 0.0 /100WBC Nucleated RBCs # 0 K/uL APTT (18.6-31.3) SEC Sodium 139 (136-148) mmol/L Potassium 3.9 (3.5-5.1) mmol/L Chloride 101 (98-107) mmol/L Carbon Dioxide 27.1 (21.0-32.0) mmol/L BUN 17 (7.0-18.0) mg/dL Creatinine 1.1 (0.8-1.3) mg/dL Est Cr Clr Drug Dosing 82.72 mL/min Estimated GFR (MDRD) > 60.0 ml/min Glucose 297 H (74-106) mg/dL POC Glucose 280 H (70-99) mg/dL Hemoglobin A1c (4.5 - 6.2) % Calcium 9.1 (8.5-10.1) mg/dL Total Bilirubin 0.2 (0.2-1.0) mg/dL AST 25 (15-37) IU/L ALT 38 (14-63) IU/L Alkaline Phosphatase 90 (46-116) U/L Creatine Kinase 99 (26-308) U/L Troponin I < 0.050 (0.000-0.056) ng/mL Total Protein 7.9 (6.4-8.2) g/dL Albumin 3.8 (3.4-5.0) g/dL Globulin 4.1 H (2.6-4.0) g/dL Albumin/Globulin Ratio 0.9 (0.9-1.6) Triglycerides (0-200) mg/dL Cholesterol (50-200) mg/dL LDL Cholesterol, Calc (60-180) mg/dL VLDL Cholesterol (5-55) mg/dL HDL Cholesterol (40-60) mg/dL Cholesterol/HDL Ratio (3.3-6.0) Lipase 430 H (73-393) U/L TSH 3rd Generation (0.36-3.74) uIU/mL Urine Opiates Screen (NEGATIVE) Ur Oxycodone Screen (NEGATIVE) Urine Methadone Screen (NEGATIVE) Ur Barbiturates Screen (NEGATIVE) Ur Phencyclidine Scrn (NEGATIVE) Ur Amphetamine Screen (NEGATIVE) U Methamphetamines Scrn (NEGATIVE) U Benzodiazepines Scrn (NEGATIVE) U Cocaine Metab Screen (NEGATIVE) U Marijuana (THC) Screen (NEGATIVE) SARS-CoV-2 RNA (TOMMY) (NEGATIVE) 10/23/20 10/23/20 10/23/20 Range/Units 00:15 00:23 01:00 WBC (4.0-11.0) K/uL RBC (4.50-5.90) M/uL Hgb (13.0-17.0) g/dL Hct (38.0-50.0) % MCV (80.0-98.0) fL MCH (27.0-32.0) pg MCHC (31.0-37.0) g/dL RDW Std Deviation (28.0-62.0) fl RDW Coeff of Do (11.0-15.0) % Plt Count (150-400) K/uL MPV (7.40-12.00) fL Neut % (Auto) (48.0-80.0) % Lymph % (Auto) (16.0-40.0) % [place] % (Auto) (0.0-15.0) % Eos % (Auto) (0.0-7.0) % Baso % (Auto) (0.0-1.5) % Neut # (Auto) (1.4-5.7) K/uL Lymph # (Auto) (0.6-2.4) K/uL [place] # (Auto) (0.0-0.8) K/uL Eos # (Auto) (0.0-0.7) K/uL Baso # (Auto) (0.0-0.1) K/uL Nucleated RBC % /100WBC Nucleated RBCs # K/uL APTT (18.6-31.3) SEC Sodium (136-148) mmol/L Potassium (3.5-5.1) mmol/L Chloride (98-107) mmol/L Carbon Dioxide (21.0-32.0) mmol/L BUN (7.0-18.0) mg/dL Creatinine (0.8-1.3) mg/dL Est Cr Clr Drug Dosing mL/min Estimated GFR (MDRD) ml/min Glucose (74-106) mg/dL POC Glucose (70-99) mg/dL Hemoglobin A1c (4.5 - 6.2) % Calcium (8.5-10.1) mg/dL Total Bilirubin (0.2-1.0) mg/dL AST (15-37) IU/L ALT (14-63) IU/L Alkaline Phosphatase (46-116) U/L Creatine Kinase 111 (26-308) U/L Troponin I < 0.050 (0.000-0.056) ng/mL Total Protein (6.4-8.2) g/dL Albumin (3.4-5.0) g/dL Globulin (2.6-4.0) g/dL Albumin/Globulin Ratio (0.9-1.6) Triglycerides (0-200) mg/dL Cholesterol (50-200) mg/dL LDL Cholesterol, Calc (60-180) mg/dL VLDL Cholesterol (5-55) mg/dL HDL Cholesterol (40-60) mg/dL Cholesterol/HDL Ratio (3.3-6.0) Lipase (73-393) U/L TSH 3rd Generation (0.36-3.74) uIU/mL Urine Opiates Screen NEGATIVE (NEGATIVE) Ur Oxycodone Screen NEGATIVE (NEGATIVE) Urine Methadone Screen NEGATIVE (NEGATIVE) Ur Barbiturates Screen NEGATIVE (NEGATIVE) Ur Phencyclidine Scrn NEGATIVE (NEGATIVE) Ur Amphetamine Screen NEGATIVE (NEGATIVE) U Methamphetamines Scrn NEGATIVE (NEGATIVE) U Benzodiazepines Scrn NEGATIVE (NEGATIVE) U Cocaine Metab Screen NEGATIVE (NEGATIVE) U Marijuana (THC) Screen POSITIVE (NEGATIVE) SARS-CoV-2 RNA (TOMMY) NEGATIVE (NEGATIVE) 10/23/20 10/23/20 10/23/20 Range/Units 03:53 03:53 03:53 WBC (4.0-11.0) K/uL RBC (4.50-5.90) M/uL Hgb (13.0-17.0) g/dL Hct (38.0-50.0) % MCV (80.0-98.0) fL MCH (27.0-32.0) pg MCHC (31.0-37.0) g/dL RDW Std Deviation (28.0-62.0) fl RDW Coeff of Do (11.0-15.0) % Plt Count (150-400) K/uL MPV (7.40-12.00) fL Neut % (Auto) (48.0-80.0) % Lymph % (Auto) (16.0-40.0) % [place] % (Auto) (0.0-15.0) % Eos % (Auto) (0.0-7.0) % Baso % (Auto) (0.0-1.5) % Neut # (Auto) (1.4-5.7) K/uL Lymph # (Auto) (0.6-2.4) K/uL [place] # (Auto) (0.0-0.8) K/uL Eos # (Auto) (0.0-0.7) K/uL Baso # (Auto) (0.0-0.1) K/uL Nucleated RBC % /100WBC Nucleated RBCs # K/uL APTT (18.6-31.3) SEC Sodium (136-148) mmol/L Potassium (3.5-5.1) mmol/L Chloride (98-107) mmol/L Carbon Dioxide (21.0-32.0) mmol/L BUN (7.0-18.0) mg/dL Creatinine (0.8-1.3) mg/dL Est Cr Clr Drug Dosing mL/min Estimated GFR (MDRD) ml/min Glucose (74-106) mg/dL POC Glucose (70-99) mg/dL Hemoglobin A1c 11.3 H (4.5 - 6.2) % Calcium (8.5-10.1) mg/dL Total Bilirubin (0.2-1.0) mg/dL AST (15-37) IU/L ALT (14-63) IU/L Alkaline Phosphatase (46-116) U/L Creatine Kinase (26-308) U/L Troponin I < 0.050 (0.000-0.056) ng/mL Total Protein (6.4-8.2) g/dL Albumin (3.4-5.0) g/dL Globulin (2.6-4.0) g/dL Albumin/Globulin Ratio (0.9-1.6) Triglycerides 64 (0-200) mg/dL Cholesterol 119 (50-200) mg/dL LDL Cholesterol, Calc 56 L (60-180) mg/dL VLDL Cholesterol 12 (5-55) mg/dL HDL Cholesterol 50 (40-60) mg/dL Cholesterol/HDL Ratio 2.4 L (3.3-6.0) Lipase (73-393) U/L TSH 3rd Generation 1.43 (0.36-3.74) uIU/mL Urine Opiates Screen (NEGATIVE) Ur Oxycodone Screen (NEGATIVE) Urine Methadone Screen (NEGATIVE) Ur Barbiturates Screen (NEGATIVE) Ur Phencyclidine Scrn (NEGATIVE) Ur Amphetamine Screen (NEGATIVE) U Methamphetamines Scrn (NEGATIVE) U Benzodiazepines Scrn (NEGATIVE) U Cocaine Metab Screen (NEGATIVE) U Marijuana (THC) Screen (NEGATIVE) SARS-CoV-2 RNA (TOMMY) (NEGATIVE) 10/23/20 10/23/20 10/23/20 Range/Units 04:59 05:00 06:51 WBC (4.0-11.0) K/uL RBC (4.50-5.90) M/uL Hgb (13.0-17.0) g/dL Hct (38.0-50.0) % MCV (80.0-98.0) fL MCH (27.0-32.0) pg MCHC (31.0-37.0) g/dL RDW Std Deviation (28.0-62.0) fl RDW Coeff of Do (11.0-15.0) % Plt Count (150-400) K/uL MPV (7.40-12.00) fL Neut % (Auto) (48.0-80.0) % Lymph % (Auto) (16.0-40.0) % [place] % (Auto) (0.0-15.0) % Eos % (Auto) (0.0-7.0) % Baso % (Auto) (0.0-1.5) % Neut # (Auto) (1.4-5.7) K/uL Lymph # (Auto) (0.6-2.4) K/uL [place] # (Auto) (0.0-0.8) K/uL Eos # (Auto) (0.0-0.7) K/uL Baso # (Auto) (0.0-0.1) K/uL Nucleated RBC % /100WBC Nucleated RBCs # K/uL APTT 23.4 (18.6-31.3) SEC Sodium (136-148) mmol/L Potassium (3.5-5.1) mmol/L Chloride (98-107) mmol/L Carbon Dioxide (21.0-32.0) mmol/L BUN (7.0-18.0) mg/dL Creatinine (0.8-1.3) mg/dL Est Cr Clr Drug Dosing mL/min Estimated GFR (MDRD) ml/min Glucose (74-106) mg/dL POC Glucose 320 H 306 H (70-99) mg/dL Hemoglobin A1c (4.5 - 6.2) % Calcium (8.5-10.1) mg/dL Total Bilirubin (0.2-1.0) mg/dL AST (15-37) IU/L ALT (14-63) IU/L Alkaline Phosphatase (46-116) U/L Creatine Kinase (26-308) U/L Troponin I (0.000-0.056) ng/mL Total Protein (6.4-8.2) g/dL Albumin (3.4-5.0) g/dL Globulin (2.6-4.0) g/dL Albumin/Globulin Ratio (0.9-1.6) Triglycerides (0-200) mg/dL Cholesterol (50-200) mg/dL LDL Cholesterol, Calc (60-180) mg/dL VLDL Cholesterol (5-55) mg/dL HDL Cholesterol (40-60) mg/dL Cholesterol/HDL Ratio (3.3-6.0) Lipase (73-393) U/L TSH 3rd Generation (0.36-3.74) uIU/mL Urine Opiates Screen (NEGATIVE) Ur Oxycodone Screen (NEGATIVE) Urine Methadone Screen (NEGATIVE) Ur Barbiturates Screen (NEGATIVE) Ur Phencyclidine Scrn (NEGATIVE) Ur Amphetamine Screen (NEGATIVE) U Methamphetamines Scrn (NEGATIVE) U Benzodiazepines Scrn (NEGATIVE) U Cocaine Metab Screen (NEGATIVE) U Marijuana (THC) Screen (NEGATIVE) SARS-CoV-2 RNA (TOMMY) (NEGATIVE) 10/23/20 Range/Units 07:03 WBC (4.0-11.0) K/uL RBC (4.50-5.90) M/uL Hgb (13.0-17.0) g/dL Hct (38.0-50.0) % MCV (80.0-98.0) fL MCH (27.0-32.0) pg MCHC (31.0-37.0) g/dL RDW Std Deviation (28.0-62.0) fl RDW Coeff of Do (11.0-15.0) % Plt Count (150-400) K/uL MPV (7.40-12.00) fL Neut % (Auto) (48.0-80.0) % Lymph % (Auto) (16.0-40.0) % [place] % (Auto) (0.0-15.0) % Eos % (Auto) (0.0-7.0) % Baso % (Auto) (0.0-1.5) % Neut # (Auto) (1.4-5.7) K/uL Lymph # (Auto) (0.6-2.4) K/uL [place] # (Auto) (0.0-0.8) K/uL Eos # (Auto) (0.0-0.7) K/uL Baso # (Auto) (0.0-0.1) K/uL Nucleated RBC % /100WBC Nucleated RBCs # K/uL APTT (18.6-31.3) SEC Sodium (136-148) mmol/L Potassium (3.5-5.1) mmol/L Chloride (98-107) mmol/L Carbon Dioxide (21.0-32.0) mmol/L BUN (7.0-18.0) mg/dL Creatinine (0.8-1.3) mg/dL Est Cr Clr Drug Dosing mL/min Estimated GFR (MDRD) ml/min Glucose (74-106) mg/dL POC Glucose (70-99) mg/dL Hemoglobin A1c (4.5 - 6.2) % Calcium (8.5-10.1) mg/dL Total Bilirubin (0.2-1.0) mg/dL AST (15-37) IU/L ALT (14-63) IU/L Alkaline Phosphatase (46-116) U/L Creatine Kinase (26-308) U/L Troponin I < 0.050 (0.000-0.056) ng/mL Total Protein (6.4-8.2) g/dL Albumin (3.4-5.0) g/dL Globulin (2.6-4.0) g/dL Albumin/Globulin Ratio (0.9-1.6) Triglycerides (0-200) mg/dL Cholesterol (50-200) mg/dL LDL Cholesterol, Calc (60-180) mg/dL VLDL Cholesterol (5-55) mg/dL HDL Cholesterol (40-60) mg/dL Cholesterol/HDL Ratio (3.3-6.0) Lipase (73-393) U/L TSH 3rd Generation (0.36-3.74) uIU/mL Urine Opiates Screen (NEGATIVE) Ur Oxycodone Screen (NEGATIVE) Urine Methadone Screen (NEGATIVE) Ur Barbiturates Screen (NEGATIVE) Ur Phencyclidine Scrn (NEGATIVE) Ur Amphetamine Screen (NEGATIVE) U Methamphetamines Scrn (NEGATIVE) U Benzodiazepines Scrn (NEGATIVE) U Cocaine Metab Screen (NEGATIVE) U Marijuana (THC) Screen (NEGATIVE) SARS-CoV-2 RNA (TOMMY) (NEGATIVE) Result Diagrams: 10/22/20 22:17 10/22/20 22:17 Sepsis Event Note - Evaluation Sepsis Screening Result: No Definite Risk - Focused Exam Vital Signs: Vital Signs Temp Pulse Resp BP Pulse Ox 10/23/20 09:00 97.9 F 64 20 135/71 97 10/23/20 05:03 97.5 F 61 18 126/67 97 10/23/20 03:00 97 F 67 18 131/65 97 10/22/20 22:18 97 F 86 18 162/81 H 95 - Problem List (1) Chest pain SNOMED Code(s): 24237242 ICD Code: R07.9 - CHEST PAIN, UNSPECIFIED Status: Acute (2) STEMI (ST elevation myocardial infarction) SNOMED Code(s): 56982569 ICD Code: I21.3 - ST ELEVATION (STEMI) MYOCARDIAL INFARCTION OF UNSP SITE Status: Acute Qualifiers: Involved coronary artery: unspecified coronary artery Qualified Code(s): I21.3 - ST elevation (STEMI) myocardial infarction of unspecified site Problem List Initiated/Reviewed/Updated: Yes Orders Last 24hrs: Active Orders 24 hr Category Date Time Status Patient Status [ADT] Routine ADT 10/23/20 02:01 Active Accu Check [Blood Glucose Check, Bedside] [] TIDAC Care 10/23/20 07:30 Active Ambulate [RC] ASDIRECTED Care 10/23/20 04:04 Active EKG 12 Lead [EKG Documentation Completion] [] STAT Care 10/23/20 01:59 Active EKG Documentation Completion [] STAT Care 10/22/20 22:30 Active Oxygen Therapy [RC] ASDIRECTED Care 10/23/20 04:03 Active Pulse Oximetry [RC] ASDIRECTED Care 10/23/20 04:13 Active RT Aerosol Therapy [] ASDIRECTED Care 10/23/20 04:06 Active Telemetry Monitoring [Cardiac Monitoring] [] Q8H Care 10/23/20 02:25 Active Vital Signs [] Q4H Care 10/23/20 03:53 Active [employer] Diet [DIET] Diet 10/23/20 Breakfast Active PTT,PARTIAL THROMBOPLSTIN TIME [COAG] Q6H Lab 10/23/20 10:45 Ordered PTT,PARTIAL THROMBOPLSTIN TIME [COAG] Q6H Lab 10/23/20 16:45 Ordered PTT,PARTIAL THROMBOPLSTIN TIME [COAG] Q6H Lab 10/23/20 22:45 Ordered PTT,PARTIAL THROMBOPLSTIN TIME [COAG] Q6H Lab 10/24/20 04:45 Ordered PTT,PARTIAL THROMBOPLSTIN TIME [COAG] Q6H Lab 10/24/20 10:45 Ordered PTT,PARTIAL THROMBOPLSTIN TIME [COAG] Q6H Lab 10/24/20 16:45 Ordered Albuterol/Ipratropium [DuoNeb 3.0-0.5 MG/3 ML] Med 10/23/20 04:05 Active 3 ml NEB Q4HRRT PRN Aspirin Med 10/23/20 09:00 Active 81 mg PO DAILY Dextrose 50% in Water Med 10/23/20 04:08 Active 50 ml IV ASDIRECTED PRN Glucagon,Human Recombinant [GlucaGen] Med 10/23/20 04:08 Active 1 mg IM ASDIRECTED PRN Heparin Sodium/0.45% NaCl [Heparin 25,000 Units in 1/2 Med 10/23/20 04:45 Active NS 500 ML] 500 ml IV TITRATE Insulin Aspart [NovoLOG] Med 10/23/20 07:30 Active See Protocol SUBCUT TIDAC Lactated Ringers [Ringers, Lactated] 1,000 ml Med 10/23/20 04:15 Active IV ASDIRECTED Morphine Med 10/23/20 04:02 Active 1 mg IVPUSH Q4H PRN Ondansetron [Zofran] Med 10/23/20 04:07 Active 4 mg IVPUSH Q4H PRN Pantoprazole [ProTONIX IV] 40 mg Med 10/23/20 04:45 Active Sodium Chloride 0.9% [Normal Saline] 10 ml IV Q24H lisinopriL [Prinivil] Med 10/24/20 09:00 Active 40 mg PO DAILY Medication Orders Albuterol/Ipratropium (Albuterol/Ipratropium 3.0-0.5 Mg/3 Ml Neb Soln) 3 ml NEB Q4HRRT PRN PRN Reason: Wheezing Aspirin (Aspirin 81 Mg Tab.Chew) 81 mg PO DAILY [facility] Last Admin: 10/23/20 08:41 Dose: Not Given Documented by: Admin: 10/23/20 06:31 Dose: 81 mg Documented by: JD Dextrose/Water (50% Dextrose In Water 50 Ml Syringe) 50 ml IV ASDIRECTED PRN PRN Reason: Hypoglycemia Glucagon (Glucagon,Human Recombinant 1 Mg Vial) 1 mg IM ASDIRECTED PRN PRN Reason: Hypoglycemia Lactated Ringer's (Ringers, Lactated) 1,000 mls @ 125 mls/hr IV ASDIRECTED TIMOTHY Last Admin: 10/23/20 04:30 Dose: 125 mls/hr Documented by: JD Heparin Sodium/Sodium Chloride (Heparin 25,000 Units In 1/2 Ns 500 Ml) 500 mls @ 20.238 mls/hr IV TITRATE TIMOTHY; Protocol Last Admin: 10/23/20 06:22 Dose: 12 units/kg/hr, 20.238 mls/hr Documented by: JD Cosigned by: INNA Pantoprazole Sodium 40 mg/ (Sodium Chloride) 10 mls @ 300 mls/hr IV Q24H TIMOTHY Last Admin: 10/23/20 06:39 Dose: 300 mls/hr Documented by: JD Insulin Aspart (Insulin Aspart 100 Units/Ml 3 Ml Pen) 0 unit SUBCUT TIDAC TIMOTHY; Protocol Last Admin: 10/23/20 08:34 Dose: 4 unit Documented by: ROBBY Lisinopril (Lisinopril 10 Mg Tab) 40 mg PO DAILY [facility] Morphine Sulfate (Morphine 2 Mg/Ml Syringe) 1 mg IVPUSH Q4H PRN PRN Reason: Pain Last Admin: 10/23/20 04:29 Dose: 1 mg Documented by: JD Ondansetron HCl (Ondansetron 4 Mg/2 Ml Sdv) 4 mg IVPUSH Q4H PRN PRN Reason: Nausea/Vomiting Assessment/Plan Comment:: Assessment: 1. Chest pain with ACS rule out. 2. History of inferior wall FL with negative angiogram 3. Pulmonary vein thrombosis on Eliquis 4. Past medical history: Type 2 diabetes/uncontrolled, hypertension, hyperl ipidemia, Reported polysubstance abuse/THC positive Plan Admitted to observation. Full code. I's and O's per routine vitals per routine DVT prophylaxis: Lovenox 40 twice daily GI prophylaxis: Pantoprazole 40 daily 1. Chest pain with ACS rule out: Significant history of previous inferior wall FL with negative CT angio. Troponin x4 -. EKG findings compared with the previous EKG suggesting chronic findings with some marginal improvement: ST elevations noted in leads II, 3, aVF, V5V6. Spoke to Dr. Lua of cardiology, field operations manager physician, at [facility] regarding patient's current clinical condition. Dr. Lua reviewed imaging and notes from September 29 admission including EKG and coronary catheterization. 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 Discussed current EKG findings today; Advised to continue to clinically treat/monitor patient and vitals/troponin. Discussed troponin x4 -. recommended Lovenox at DVT prophylaxis dosing and ordering a repeat echocardiogram if blood pressures are not maintained. Also recommended possibly trying NSAIDs for possible pericarditis. Advised if anything else changes to notify cardiology/transfer to [facility] if appropriate. Received records from [facility]: Patient on Sep 29 [address] elevations in inferior leads on arrival to ED in [facility]. Patient was given tenecteplase and transferred to [facility]. Heart catheterization was performed suggesting mild atherosclerotic coronary artery disease without any significant lesions and normal filling pressures. CT angio chest was also performed suggesting a pulmonary vein thrombosis as well as a pulmonary nodule which per notes from [place] is quite rare Echo: Ejection fraction 60%. No hemodynamically significant failure. Lower extremity venous duplex negative for any DVTs. Patient was discharged on Eliquis, advised to also follow with heme-onc in 1 to 2 weeks for further management and evaluation for pulmonary vein thrombosis. Advised to continue Eliquis x6 months.. Some concerns that Covid vaccine may have been the culprit for patient's current symptoms but this is not verified. Patient received his Covid vaccine on September 07. Patient was also advised to follow-up with cardiology, Dr. Groves of cardiology in 6 weeks for possible repeat catheterization and evaluation. Patient is also advised to get repeat CT angio in 6 weeks to follow-up regarding pulmonary nodule/pulmonary vein thrombosis. Discussed findings of medical records w. patient and he was made aware of his follow up and recommendations from various consultants pt is otherwise a poor historian and is not completely aware of some of the details about his cardiac/pulmonary findings. Some concerns about polysubstance abuse however patient is reluctant to admit to this. Troponin x4 -. Continue to monitor on vitals/telemetry. Replete electrolytes as necessary. Discontinue heparin drip and started on Lovenox 40 mg twice daily. Concerns about pericarditis versus myocarditis/pericardial effusion; CTA ordered: Angiogram ordered secondary to history of pulmonary vein thrombosis. Repeat echocardiogram ordered but this may not be feasible as there is no ultrasound/echo cardiac tach here over the weekend. As per recommendations from cardiology if symptoms symptoms vitals change and become clinically deteriorating will need to transfer patient to higher level of care. Vitals otherwise stable Atorvastatin 40 mg p.o. daily. CTA chest: Negative for pericardial effusion. Negative for pulmonary emboli. Negative for acute cardiopulmonary pathologies. Pain control morphine 1 mg every 4 as needed. May consider NSAIDs/aspirin if necessary. Per patient : pain controlled more in supine position; increased w. sitting upright/leaning forward (paradoxical to pericarditics picture) but increased w. deep inspiration (concerns for costochondritis as well) 2. Pulmonary vein thrombosis: Was on Eliquis; continue Lovenox 40 mg twice daily. While restart Eliquis when appropriate/discharge. Not requiring any supplemental oxygen. Vital signs otherwise stable. 3. Type 2 diabetes/uncontrolled: Per records from my not A1c elevated greater than 10. High-dose sliding scale insulin started. Will consider long-acting regimen once sliding-scale requirements are established. Diabetic diet ordered. 4. History of polysubstance abuse/THC positive: Possible history of fentanyl use but this is not verified as this was ported by law enforcement. Except UA except for THC negative. Covid negative. Follow up : per patient he has scheduled follow up at [facility] both Cardiology and Oncology in the following week (will confirm [facility] dates of appointments) <Rola Tim - Last Filed: 10/26/20 17:11> H&P History of Present Illness - General Admit Problem/Dx: Admission Diagnosis/Problem Admission Diagnosis/Problem Chest pain in adult Exam - Vital Signs Vital Signs: Last Vital Signs Temp 36.4 C 10/24/20 11:38 Pulse 65 10/24/20 11:38 Resp 18 10/24/20 11:38 BP 156/82 H 10/24/20 11:38 Pulse Ox 97 10/24/20 11:38 - Patient Data Lab Results Last 24 hrs: Laboratory Results - last 24 hr 10/24/20 Range/Units 05:15 C-React Prot High Sens 0.64 mg/L Result Diagrams: 10/24/20 05:05 10/24/20 05:05 - Problem List (1) Chest pain SNOMED Code(s): 86397987 ICD Code: R07.9 - CHEST PAIN, UNSPECIFIED Status: Acute Assessment/Plan Comment:: I performed a history and physical exam of the patient and discussed management with resident. I have reviewed the residents note and agree with documented findings and plan unless otherwise specified in my note.'
[2020-10-23] MEDS ORDERED: Enoxaparin 40 MG/0.4 ML Syringe SUBCUT SCH (12:15)
[2020-10-23] MEDS ORDERED: Iopamidol 755 MG/ML 500 ML Multipack Bottle IVPUSH ONE ×2 (13:32)
--- NOTE | 2020-10-23 14:22 | CT ---
INDICATION: Concern for pericardial effusion. Thrombosis a couple of weeks ago. On blood thinners. TECHNIQUE: CT chest pulmonary angiogram acquired with IV contrast. COMPARISON: Chest radiograph 10/22/2020, 09/27/2020 FINDINGS: Cardiovascular structures: Normal vascular enhancement of the pulmonary arteries, no sign of pulmonary embolism. Heart size is normal. No sign of aneurysm or dissection in the thoracic aorta. Mediastinum and [place]: No mass or adenopathy. Lungs: No pneumothorax. No consolidation or edema. There is linear atelectasis in the left lower lobe. Minimal atelectasis in the right lower lobe. Pleura and pericardium: No effusions. Chest wall and axilla: No mass or adenopathy. Bones: No acute abnormality. No suspicious bone lesion. End plate osteophytic changes in the thoracic spine. Upper abdomen: Unremarkable. IMPRESSION: 1. No pulmonary embolus. 2. No pneumonia. 3. Linear atelectasis in the left lower lobe. 4. No pericardial effusion. Please note that all CT scans at this facility use dose modulation, iterative reconstruction, and/or weight-based dosing when appropriate to reduce radiation dose to as low as reasonably achievable. Dictated by Inderjit Morales MD @ 10/23/2020 2:20:[address] Inderjit Morales @ Oct 23 2020 2:20PM
[2020-10-23] MEDS ORDERED: Insulin Glargine,Human Rec. Analog 100 Units/ML 3 ML Pen SUBCUT SCH (21:00)
[2020-10-23] MEDS ORDERED: atorvaSTATin 40 MG Tab PO SCH (21:00)
[2020-10-23] MEDS ORDERED: Enoxaparin 40 MG/0.4 ML Syringe SUBCUT ONE (21:26)
[2020-10-24] MEDS: oxyCODONE 5 MG Tab PO SCH ×3 (00:02→11:23)
[2020-10-24] MEDS: Pantoprazole 40 MG in Sodium Chloride 0.9% 10 ML IV SCH (04:41)
[2020-10-24 05:49] LABS: BLOOD UREA NITROGEN,BUN 11 mg/dL (7.0-18.0); CHLORIDE,CL 104 mmol/L (98-107); GLUCOSE RANDOM 161 mg/dL (74-106); POTASSIUM,K 3.8 mmol/L (3.5-5.1); SODIUM,NA 136 mmol/L (136-148)
[2020-10-24] MEDS: Lactated Ringers 1,000 ML IV SCH (06:22)
[2020-10-24] MEDS: Insulin Aspart 100 Units/ML 3 ML Pen SUBCUT SCH ×2 (06:58→11:41)
[2020-10-24] MEDS: Aspirin 81 MG Tab.Chew PO SCH (08:01)
[2020-10-24] MEDS ORDERED: Lisinopril 10 MG Tab PO SCH (09:00)
[2020-10-24] MEDS ORDERED: Enoxaparin 40 MG/0.4 ML Syringe SUBCUT SCH (09:00)
[2020-10-24] MEDS ORDERED: Aspirin 81 MG Tab.Chew PO SCH (09:00)
[2020-10-24] MEDS ORDERED: Magnesium Sulfate/Water 2 GM in Premix Bag 1 BAG IV ONE (09:30)
[2020-10-24 11:41] VITALS: BP 156/82; PULSE 65
--- NOTE | 2020-10-24 11:47 | PCM.DCSUM1 ---
Discharge Summary - Discharge Data Discharge Disposition: Home, Self-Care 01 Condition: Stable - Referral to Home Health Primary Care Physician: PCP None - Discharge Plan *PRESCRIPTION DRUG MONITORING PROGRAM REVIEWED*: Not Applicable *COPY OF PRESCRIPTION DRUG MONITORING REPORT IN PATIENT AKBAR: Not Applicable Home Medications: Home Meds Aspirin 1 tab PO DAILY 01/01/17 [History] Insulin Aspart [NovoLOG] See Protocol SQ TIDMEALS 01/01/17 [History] Insulin Glarg,Human.Rec.Analog [Lantus] 32 units SQ BID 01/01/17 [History] Gabapentin [Neurontin] 600 mg PO TID 09/27/20 [History] glipiZIDE [Glucotrol XL] 10 mg PO DAILY 09/27/20 [History] metFORMIN [Glucophage XR] 1,000 mg PO BID 09/27/20 [History] Apixaban [Eliquis] 1 tab PO BID 10/23/20 [History] Cyclobenzaprine [Flexeril] 10 mg PO TID 10/23/20 [History] lisinopriL [Lisinopril] 40 mg PO DAILY 10/23/20 [History] Patient Handouts: Nonspecific Chest Pain, Adult, [id number] - Patient Data Vitals - Most Recent: Last Vital Signs Temp 36.4 C 10/24/20 11:38 Pulse 65 10/24/20 11:38 Resp 18 10/24/20 11:38 BP 156/82 H 10/24/20 11:38 Pulse Ox 97 10/24/20 11:38 Weight - Most Recent: 84.323 kg I&O - Last 24 hours: Intake & Output 10/23/20 10/24/20 10/24/20 22:59 06:59 14:59 Intake Total 2853 860 Output Total 1400 950 Balance 1453 -90 Lab Results - Last 24 hrs: Laboratory Results - last 24 hr 10/23/20 10/23/20 10/23/20 Range/Units 10:47 12:20 16:45 WBC (4.0-11.0) K/uL RBC (4.50-5.90) M/uL Hgb (13.0-17.0) g/dL Hct (38.0-50.0) % MCV (80.0-98.0) fL MCH (27.0-32.0) pg MCHC (31.0-37.0) g/dL RDW Std Deviation (28.0-62.0) fl RDW Coeff of Do (11.0-15.0) % Plt Count (150-400) K/uL MPV (7.40-12.00) fL Neut % (Auto) (48.0-80.0) % Lymph % (Auto) (16.0-40.0) % [place] % (Auto) (0.0-15.0) % Eos % (Auto) (0.0-7.0) % Baso % (Auto) (0.0-1.5) % Neut # (Auto) (1.4-5.7) K/uL Lymph # (Auto) (0.6-2.4) K/uL [place] # (Auto) (0.0-0.8) K/uL Eos # (Auto) (0.0-0.7) K/uL Baso # (Auto) (0.0-0.1) K/uL Nucleated RBC % /100WBC Nucleated RBCs # K/uL ESR (0-19) mm/hr APTT 41.2 H 25.2 (18.6-31.3) SEC Sodium (136-148) mmol/L Potassium (3.5-5.1) mmol/L Chloride (98-107) mmol/L Carbon Dioxide (21.0-32.0) mmol/L BUN (7.0-18.0) mg/dL Creatinine (0.8-1.3) mg/dL Est Cr Clr Drug Dosing mL/min Estimated GFR (MDRD) ml/min Glucose (74-106) mg/dL POC Glucose 221 H (70-99) mg/dL Calcium (8.5-10.1) mg/dL Phosphorus (2.6-4.7) mg/dL Magnesium (1.8-2.4) mg/dL Total Bilirubin (0.2-1.0) mg/dL AST (15-37) IU/L ALT (14-63) IU/L Alkaline Phosphatase (46-116) U/L Troponin I (0.000-0.056) ng/mL Total Protein (6.4-8.2) g/dL Albumin (3.4-5.0) g/dL Globulin (2.6-4.0) g/dL Albumin/Globulin Ratio (0.9-1.6) 10/23/20 10/23/20 10/24/20 Range/Units 17:47 22:45 05:05 WBC 8.54 (4.0-11.0) K/uL RBC 4.68 (4.50-5.90) M/uL Hgb 13.7 (13.0-17.0) g/dL Hct 41.1 (38.0-50.0) % MCV 87.8 (80.0-98.0) fL MCH 29.3 (27.0-32.0) pg MCHC 33.3 (31.0-37.0) g/dL RDW Std Deviation 44.4 (28.0-62.0) fl RDW Coeff of Do 14 (11.0-15.0) % Plt Count 174 (150-400) K/uL MPV 9.70 (7.40-12.00) fL Neut % (Auto) 50.8 (48.0-80.0) % Lymph % (Auto) 36.1 (16.0-40.0) % [place] % (Auto) 5.3 (0.0-15.0) % Eos % (Auto) 7.3 H (0.0-7.0) % Baso % (Auto) 0.5 (0.0-1.5) % Neut # (Auto) 4.4 (1.4-5.7) K/uL Lymph # (Auto) 3.1 H (0.6-2.4) K/uL [place] # (Auto) 0.5 (0.0-0.8) K/uL Eos # (Auto) 0.6 (0.0-0.7) K/uL Baso # (Auto) 0.0 (0.0-0.1) K/uL Nucleated RBC % 0.0 /100WBC Nucleated RBCs # 0 K/uL ESR (0-19) mm/hr APTT 26.3 (18.6-31.3) SEC Sodium (136-148) mmol/L Potassium (3.5-5.1) mmol/L Chloride (98-107) mmol/L Carbon Dioxide (21.0-32.0) mmol/L BUN (7.0-18.0) mg/dL Creatinine (0.8-1.3) mg/dL Est Cr Clr Drug Dosing mL/min Estimated GFR (MDRD) ml/min Glucose (74-106) mg/dL POC Glucose 206 H (70-99) mg/dL Calcium (8.5-10.1) mg/dL Phosphorus (2.6-4.7) mg/dL Magnesium (1.8-2.4) mg/dL Total Bilirubin (0.2-1.0) mg/dL AST (15-37) IU/L ALT (14-63) IU/L Alkaline Phosphatase (46-116) U/L Troponin I (0.000-0.056) ng/mL Total Protein (6.4-8.2) g/dL Albumin (3.4-5.0) g/dL Globulin (2.6-4.0) g/dL Albumin/Globulin Ratio (0.9-1.6) 10/24/20 10/24/20 10/24/20 Range/Units 05:05 05:05 05:15 WBC (4.0-11.0) K/uL RBC (4.50-5.90) M/uL Hgb (13.0-17.0) g/dL Hct (38.0-50.0) % MCV (80.0-98.0) fL MCH (27.0-32.0) pg MCHC (31.0-37.0) g/dL RDW Std Deviation (28.0-62.0) fl RDW Coeff of Do (11.0-15.0) % Plt Count (150-400) K/uL MPV (7.40-12.00) fL Neut % (Auto) (48.0-80.0) % Lymph % (Auto) (16.0-40.0) % [place] % (Auto) (0.0-15.0) % Eos % (Auto) (0.0-7.0) % Baso % (Auto) (0.0-1.5) % Neut # (Auto) (1.4-5.7) K/uL Lymph # (Auto) (0.6-2.4) K/uL [place] # (Auto) (0.0-0.8) K/uL Eos # (Auto) (0.0-0.7) K/uL Baso # (Auto) (0.0-0.1) K/uL Nucleated RBC % /100WBC Nucleated RBCs # K/uL ESR 9 (0-19) mm/hr APTT (18.6-31.3) SEC Sodium 136 (136-148) mmol/L Potassium 3.8 (3.5-5.1) mmol/L Chloride 104 (98-107) mmol/L Carbon Dioxide 27.0 (21.0-32.0) mmol/L BUN 11 (7.0-18.0) mg/dL Creatinine 0.8 (0.8-1.3) mg/dL Est Cr Clr Drug Dosing 113.73 mL/min Estimated GFR (MDRD) > 60.0 ml/min Glucose 161 H (74-106) mg/dL POC Glucose (70-99) mg/dL Calcium 7.9 L (8.5-10.1) mg/dL Phosphorus 2.9 (2.6-4.7) mg/dL Magnesium 1.6 L (1.8-2.4) mg/dL Total Bilirubin 0.4 (0.2-1.0) mg/dL AST 21 (15-37) IU/L ALT 31 (14-63) IU/L Alkaline Phosphatase 76 (46-116) U/L Troponin I < 0.050 (0.000-0.056) ng/mL Total Protein 6.1 L (6.4-8.2) g/dL Albumin 2.7 L (3.4-5.0) g/dL Globulin 3.4 (2.6-4.0) g/dL Albumin/Globulin Ratio 0.8 L (0.9-1.6) 10/24/20 10/24/20 Range/Units 06:28 11:25 WBC (4.0-11.0) K/uL RBC (4.50-5.90) M/uL Hgb (13.0-17.0) g/dL Hct (38.0-50.0) % MCV (80.0-98.0) fL MCH (27.0-32.0) pg MCHC (31.0-37.0) g/dL RDW Std Deviation (28.0-62.0) fl RDW Coeff of Do (11.0-15.0) % Plt Count (150-400) K/uL MPV (7.40-12.00) fL Neut % (Auto) (48.0-80.0) % Lymph % (Auto) (16.0-40.0) % [place] % (Auto) (0.0-15.0) % Eos % (Auto) (0.0-7.0) % Baso % (Auto) (0.0-1.5) % Neut # (Auto) (1.4-5.7) K/uL Lymph # (Auto) (0.6-2.4) K/uL [place] # (Auto) (0.0-0.8) K/uL Eos # (Auto) (0.0-0.7) K/uL Baso # (Auto) (0.0-0.1) K/uL Nucleated RBC % /100WBC Nucleated RBCs # K/uL ESR (0-19) mm/hr APTT (18.6-31.3) SEC Sodium (136-148) mmol/L Potassium (3.5-5.1) mmol/L Chloride (98-107) mmol/L Carbon Dioxide (21.0-32.0) mmol/L BUN (7.0-18.0) mg/dL Creatinine (0.8-1.3) mg/dL Est Cr Clr Drug Dosing mL/min Estimated GFR (MDRD) ml/min Glucose (74-106) mg/dL POC Glucose 145 H 210 H (70-99) mg/dL Calcium (8.5-10.1) mg/dL Phosphorus (2.6-4.7) mg/dL Magnesium (1.8-2.4) mg/dL Total Bilirubin (0.2-1.0) mg/dL AST (15-37) IU/L ALT (14-63) IU/L Alkaline Phosphatase (46-116) U/L Troponin I (0.000-0.056) ng/mL Total Protein (6.4-8.2) g/dL Albumin (3.4-5.0) g/dL Globulin (2.6-4.0) g/dL Albumin/Globulin Ratio (0.9-1.6) Med Orders - Current: Current Medications Albuterol/Ipratropium (Albuterol/Ipratropium 3.0-0.5 Mg/3 Ml Neb Soln) 3 ml NEB Q4HRRT PRN PRN Reason: Wheezing Aspirin (Aspirin 81 Mg Tab.Chew) 81 mg PO DAILY [facility] Last Admin: 10/24/20 08:01 Dose: 81 mg Documented by: Atorvastatin Calcium (Atorvastatin 40 Mg Tab) 40 mg PO BEDTIME [facility] Last Admin: 10/23/20 21:35 Dose: 40 mg Documented by: Dextrose/Water (50% Dextrose In Water 50 Ml Syringe) 50 ml IV ASDIRECTED PRN PRN Reason: Hypoglycemia Enoxaparin Sodium (Enoxaparin 40 Mg/0.4 Ml Syringe) 80 mg SUBCUT Q12HR [facility] Last Admin: 10/24/20 08:02 Dose: 80 mg Documented by: Glucagon (Glucagon,Human Recombinant 1 Mg Vial) 1 mg IM ASDIRECTED PRN PRN Reason: Hypoglycemia Lactated Ringer's (Ringers, Lactated) 1,000 mls @ 125 mls/hr IV ASDIRECTED [facility] Last Admin: 10/24/20 06:22 Dose: 125 mls/hr Documented by: Pantoprazole Sodium 40 mg/ (Sodium Chloride) 10 mls @ 300 mls/hr IV Q24H [facility] Last Admin: 10/24/20 04:41 Dose: 300 mls/hr Documented by: Magnesium Sulfate 2 gm/ Premix 50 mls @ 12.5 mls/hr IV ONETIME ONE Stop: 10/24/20 13:29 Last Admin: 10/24/20 09:47 Dose: 12.5 mls/hr Documented by: Insulin Aspart (Insulin Aspart 100 Units/Ml 3 Ml Pen) 0 unit SUBCUT TIDAC [facility]; Protocol Last Admin: 10/24/20 11:41 Dose: 6 unit Documented by: Insulin Glargine (Insulin Glargine,Human Rec. Analog 100 Units/Ml 3 Ml Pen) 10 units SUBCUT BEDTIME [facility] Last Admin: 10/23/20 21:35 Dose: 10 unit Documented by: Lisinopril (Lisinopril 10 Mg Tab) 40 mg PO DAILY [facility] Last Admin: 10/24/20 08:01 Dose: 40 mg Documented by: Morphine Sulfate (Morphine 2 Mg/Ml Syringe) 1 mg IVPUSH Q4H PRN PRN Reason: Pain Last Admin: 10/23/20 19:34 Dose: 1 mg Documented by: Ondansetron HCl (Ondansetron 4 Mg/2 Ml Sdv) 4 mg IVPUSH Q4H PRN PRN Reason: Nausea/Vomiting Oxycodone HCl (Oxycodone 5 Mg Tab) 5 mg PO Q6H TIMOTHY Last Admin: 10/24/20 11:23 Dose: 5 mg Documented by: Discontinued Medications Aspirin (Aspirin 81 Mg Tab.Chew) Confirm Administered Dose 81 mg .ROUTE .STK-MED ONE Stop: 10/23/20 06:28 Last Admin: 10/23/20 06:39 Dose: Not Given Documented by: Al Hydroxide/Mg Hydroxide 15 (ml/ Lidocaine HCl 5 ml) 0 ml PO ONETIME ONE Stop: 10/23/20 04:42 Last Admin: 10/23/20 06:40 Dose: 20 each Documented by: Enoxaparin Sodium (Enoxaparin 40 Mg/0.4 Ml Syringe) 40 mg SUBCUT BID [facility] Last Admin: 10/23/20 12:51 Dose: 40 mg Documented by: Enoxaparin Sodium (Enoxaparin 40 Mg/0.4 Ml Syringe) 40 mg SUBCUT ONETIME ONE Stop: 10/23/20 21:27 Last Admin: 10/23/20 21:35 Dose: 40 mg Documented by: Heparin Sodium (Porcine) (Heparin Sodium 5,000 Units/Ml Vial) 4,000 units IVPUSH .BOLUS ONE Stop: 10/23/20 06:02 Last Admin: 10/23/20 06:21 Dose: 4,000 units Documented by: Heparin Sodium/Sodium Chloride (Heparin 25,000 Units In 1/2 Ns 500 Ml) 500 mls @ 20.238 mls/hr IV TITRATE [facility]; Protocol Last Titration: 10/23/20 11:59 Dose: 0 units/kg/hr, 0 mls/hr Documented by: Iopamidol (Iopamidol 755 Mg/Ml 500 Ml Multipack Bottle) 100 ml IVPUSH ONETIME ONE Stop: 10/23/20 13:33 Last Admin: 10/23/20 16:24 Dose: Not Given Documented by: Iopamidol (Iopamidol 755 Mg/Ml 500 Ml Multipack Bottle) 87 ml IVPUSH ONETIME ONE Stop: 10/23/20 13:33 Last Admin: 10/23/20 13:33 Dose: 87 ml Documented by: Morphine Sulfate (Morphine 2 Mg/Ml Syringe) 2 mg IVPUSH ONETIME ONE Stop: 10/23/20 08:37 Last Admin: 10/23/20 09:21 Dose: 2 mg Documented by:
== END 2020-10-24 14:47 | disposition home or self-care (01) ==
LOC: MW.ED 22:13 → MW.MS 10-23 02:01
PROVIDERS: ADMIT Student in an Organized Health Care Education/Training Program; ATTEND Student in an Organized Health Care Education/Training Program
DX: R07.9 Chest pain, unspecified (principal); R55 Syncope and collapse; E11.9 Type 2 diabetes mellitus without complications; I10 Essential (primary) hypertension; E78.5 Hyperlipidemia, unspecified; I25.2 Old myocardial infarction; I26.99 Other pulmonary embolism without acute cor pulmonale; Z79.4 Long term (current) use of insulin; Z79.01 Long term (current) use of anticoagulants; Z88.8 Allergy status to other drugs, medicaments and biological substances; Z79.82 Long term (current) use of aspirin; Z79.899 Other long term (current) drug therapy; Z90.49 Acquired absence of other specified parts of digestive tract; Z20.822 Contact with and (suspected) exposure to COVID-19
CPT/HCPCS: 36415; 71046; 71275; 80053; 80061; 80305; 82550; 82947; 83036; 83690; 83735; 84100; 84443; 84484; 85025; 85652; 85730; 86141; 87635; 93005; 99285; A9270; C9113; J1644; J1650; J1815; J2270; J3475; J7120; Q9967; 96365; 96366; 96367; 96372; 96375; 96376; G0378; U0002

== ENCOUNTER 2020-10-25 10:12 | Emergency (ER) | payer MEDICAID ==
[2020-10-25] MEDS ORDERED: Aspirin 81 MG Tab.Chew PO ONE (10:18)
[2020-10-25] MEDS ORDERED: Sodium Chloride 0.9% 1,000 ML IV ONE (10:18)
[2020-10-25] MEDS ORDERED: Alum Hydrox/Mag Hydrox/Simeth 15 ML, Lidocaine 2% 5 ML PO ONE ×2 (10:20)
--- NOTE | 2020-10-25 10:21 | PCM.EKG ---
#1 Interpretation EKG Date: 10/25/20 Time: 10:11 Rhythm: NSR Rate (Beats/Min): 73 [place]: Normal P-Wave: Present QRS: Normal ST-T: Other (ST elevation leads V2, V3 consistent with benign early repol) QT: Normal ND/PQ Interval: 138 Comparison: Change From Previous EKG (EKG looks improved from prior; at that t theo patient was noted to have JIE in inferior leads. Patient was sent to [facility] for cath. Prior EKGs have shown Acute PA without gross change from the initial inferior STEMI activation EKG; today's does not read acute PA and I also do not see acute PA)
[2020-10-25 10:54] LABS: BLOOD UREA NITROGEN,BUN 12 mg/dL (7.0-18.0); CARBON DIOXIDE,CO2 19.2 mmol/L (21.0-32.0); CHLORIDE,CL 101 mmol/L (98-107); GLUCOSE RANDOM 222 mg/dL (74-106); LIPASE 124 U/L (73-393); SODIUM,NA 134 mmol/L (136-148)
--- NOTE | 2020-10-25 12:40 | CR ---
INDICATION: Pain and shortness of breath. TECHNIQUE: Chest 1 view. COMPARISON: CT of the chest, 10/23/2020. FINDINGS: Cardiovascular and mediastinum: Heart size and vasculature are normal in caliber and appearance. Mediastinum is within normal limits. Lungs and pleural space: Linear atelectasis at the left lung base, stable. No sign of infiltrate or mass. No sign of pleural effusion. No pneumothorax. Bones and soft tissues: No significant findings. IMPRESSION: No acute airspace disease. Dictated by Jack Domingo MD @ 10/25/2020 12:38:[address] Jack Domingo @ Oct 25 2020 12:38PM
--- NOTE | 2020-10-25 14:41 | EDM.PDOC ---
ED HPI GENERAL MEDICAL PROBLEM - General Chief Complaint: Chest Pain Stated Complaint: DIZZINESS Time Seen by Provider: 10/25/20 10:18 Source of Information: Reports: Patient History Limitations: Reports: No Limitations - History of Present Illness INITIAL COMMENTS - FREE TEXT/NARRATIVE: HISTORY AND PHYSICAL: History of present illness: HPI is limited due to patient cooperation Patient is a 52-year-old male who presents to the ED today with concern of dizziness. On my exam, patient is vague about his complaints and states that he does not want to answer my questions and wants me to "just wipe his nose ". Patient did note to nursing staff that he had chest pain but does not note this to me or complain of this to me. However, patient was seen on 10/22/2020 for chest pain. At that time, patient had diffuse ST elevation on EKG and admitted to the hospital for ACS r/o. Patient was discharged from the hospital yesterday on 10/24/2020 after an uneventful stay in the hospital. At that time, patient's EKG changes were determined to be chronic and not acute. Patient was noted to be recently transferred to [place] for similar EKG changes and was evaluated by cardiology in [place] a few weeks prior. Patient is noted to be on Eliquis according to documentation from his hospital stay, although up according to hospital documentation is unsure why he is on Eliquis. All troponin were negative in hospital stay including troponin yesterday at discharge. Patient offers no insight or explanation of his hospital stay. Patient does not explain his dizziness complaint. Review of systems: As per history of present illness and below otherwise all systems reviewed and negative. Past medical history: As per history of present illness and as reviewed below otherwise no ncontributory. Surgical history: As per history of present illness and as reviewed below otherwise noncontributory. Social history: See social history for further information Family history: As per history of present illness and as reviewed below otherwise noncontributory. Physical exam: General: Patient is laying on exam table with eyes shut moving his head back and forth stating he is "dizzy". When asking him about this states "I don't want to answer your questions and just wipe my nose" and in no acute distress. Patient laying comfortably on exam table. Vitals stable and reviewed by me HEENT: Atraumatic, normocephalic, pupils equal and reactive bilaterally, negative for conjunctival pallor or scleral icterus, mucous membranes moist, TMs normal bilaterally, throat clear, neck supple, nontender, trachea midline. No drooling or trismus noted. No meningeal signs. No hot potato voice noted. Lungs: Clear to auscultation, breath sounds equal bilaterally, chest nontender. Heart: Zio- patch noted to be taped to the left side of chest. Otherwise, S1S2, regular rate and rhythm without overt murmur Abdomen: Soft, nondistended, nontender. Negative for masses or hepatosplenomegaly. Negative for costovertebral tenderness. Pelvis: Stable nontender. Genitourinary: Deferred. Rectal: Deferred. Skin: Intact, warm, dry. No lesions or rashes noted. Extremities: Atraumatic, negative for cords or calf pain. Neurovascular unremarkable. Neuro: Awake, alert, oriented. Cranial nerves II through XII unremarkable. Cerebellum unremarkable. Motor and sensory unremarkable throughout. Exam nonfo rashida. Notes: Patient is a 52-year-old male who presents emergency room today with concern of dizziness which is unable to be fully discerned on HPI due to patient cooperation as he "does not want to answer my questions "and would just like me to "wipe his nose ". Upon arrival to the ED, patient is vitally stable and does have his eyes shut moving his head back and forth with one statement saying he is dizzy. Otherwise, patient is in no acute respiratory distress and otherwise well-appearing on exam. On patient chart review, note that he was just discharged from our facility yesterday due to chest pain and acute coronary syndrome rule out. According to nursing staff, he had mentioned one statement about chest pain but does not express this to me. Patient did have serial repeat troponins done in the hospital which were negative on chart review. Patient was also known to have diffuse ST elevation on EKG at his prior ER visit which was determined to be chronic and not acute during his duration of his hospital stay. Patient is currently wearing a Zio patch, which I assume is in relation to the hospital stay, but patient will not provide any HPI to this or answer my questions. Due to patient not wanting to answer my questions and possible complaint of chest pain, will obtain cardiac evaluation at this time with continual reassessment of patient. We will also add a urine drug screen due to patient's presentation in ED See Dr. Castillo dictation for specific EKG interpretation. Otherwise, EKG looks improved from prior. Normal sinus rhythm without signs of STEMI. CBC is unremarkable. CMP noted to have him mildly low sodium at 134. CO2 at 19.2. A mildly elevated glucose at 222. Initial troponin negative. Lipase within normal limits. Urinalysis does indicate greater than 80 ketones with 500 glucose otherwise unremarkable. Blood ketone negative. VBG shows blood pH WNL. Urine drug screen shows positive for oxycodone and marijuana. Upon reevaluation of patient, he has clinically much improved and is now appropriately answering all questions. According to patient, he believes that he had a "adverse reaction" to oxycodone. Patient states he took a dose this morning when he began to feel dizzy and at this time has completely resolved. Patient states that he did have the same chest pain early this morning that he was admitted to the hospital for but states that he is not currently having this and he "feels his normal self ". Due to patient's risk factors including diabetes and hypertension, will repeat troponin in 3 hours from initial lab draw and reassess patient. Repeat troponin negative. Patient remains vitally stable and comfortable throughout stay in ED requesting discharged home. Dr. Castillo verbally involved in patient care including patient disposition. Strict return precautions thoroughly discussed with patient. Signs and symptoms are prompt return to the ED thoroughly discussed with patient. Discussed importance of follow-up with his primary care provider and signal apprentice. Diagnostics: EKG, CBC, CMP, UA, UDS, Lipase, Trop x 2, CXR, Blood ketone, VBG Therapeutics: ASA, NS, GI cocktail Prescription: None Impression: Dizziness, resolved Hyperglycemia Plan: 1. You can alternate ibuprofen and Tylenol as directed for pain and discomfort. 2. Follow-up with a primary care provider and signal apprentice as discussed. Retu rn to the ED as needed and as discussed. Definitive disposition and diagnosis as appropriate pending reevaluation and review of above. chest Pain Score (Numeric/FACES): 10 - Related Data Allergies Allergy/AdvReac Type Severity Reaction Status Date / Time diphenhydramine Allergy Hives Verified 10/25/20 10:17 [From Benadryl] ibuprofen [From Motrin] Allergy Hives Verified 10/25/20 10:17 Home Meds: Home Meds Aspirin 1 tab PO DAILY 01/01/17 [History] Insulin Aspart [NovoLOG] See Protocol SQ TIDMEALS 01/01/17 [History] Insulin Glarg,Human.Rec.Analog [Lantus] 32 units SQ BID 01/01/17 [History] Gabapentin [Neurontin] 600 mg PO TID 09/27/20 [History] glipiZIDE [Glucotrol XL] 10 mg PO DAILY 09/27/20 [History] metFORMIN [Glucophage XR] 1,000 mg PO BID 09/27/20 [History] Apixaban [Eliquis] 1 tab PO BID 10/23/20 [History] Cyclobenzaprine [Flexeril] 10 mg PO TID 10/23/20 [History] lisinopriL [Lisinopril] 40 mg PO DAILY 10/23/20 [History] atorvaSTATin [Lipitor] 40 mg PO BEDTIME #30 tablet 10/24/20 [Rx] oxyCODONE 5 mg PO Q8H PRN #15 tablet 10/24/20 [Rx] Past Medical History HEENT History: Reports: None Cardiovascular History: Reports: Hypertension Respiratory History: Reports: None Gastrointestinal History: Reports: Bowel Obstruction Genitourinary History: Reports: None Musculoskeletal History: Reports: None Neurological History: Reports: None Psychiatric History: Reports: None Endocrine/Metabolic History: Reports: Diabetes, Type II Hematologic History: Reports: None Immunologic History: Reports: None Oncologic (Cancer) History: Reports: None Dermatologic History: Reports: None - Infectious Disease History Infectious Disease History: Reports: Chicken Pox - Past Surgical History Head Surgeries/Procedures: Reports: None HEENT Surgical History: Reports: None Cardiovascular Surgical History: Reports: None Respiratory Surgical History: Reports: None GI Surgical History: Reports: Appendectomy, Cholecystectomy Male Surgical History: Reports: None Endocrine Surgical History: Reports: None Neurological Surgical History: Reports: None Musculoskeletal Surgical History: Reports: None Oncologic Surgical History: Reports: None Dermatological Surgical History: Reports: None Social & Family History - Family History Family Medical History: No Pertinent Family History - Tobacco Use Tobacco Use Status *Q: Unknown Ever Used Tobacco - Caffeine Use Caffeine Use: Reports: Coffee ED ROS GENERAL - Review of Systems Review Of Systems: Comprehensive ROS is negative, except as noted in HPI. ED EXAM, GENERAL - Physical Exam Exam: See Below (see dictation) Course - Vital Signs Last Recorded V/S: Last Vital Signs Temp 98.2 F 10/25/20 10:14 Pulse 67 10/25/20 11:14 Resp 14 10/25/20 11:14 BP 162/78 H 10/25/20 11:14 Pulse Ox 97 10/25/20 11:14 Orthostatic Blood Pressure [ 130/71 Standing] Orthostatic Blood Pressure [ 126/65 Sitting] Orthostatic Blood Pressure [ 137/77 Supine] - Orders/Labs/Meds Orders: Active Orders 24 hr Category Date Time Status Cardiac Monitoring [RC] . DIRECTED Care 10/25/20 10:18 Active EKG Documentation Completion [RC] STAT Care 10/25/20 10:18 Active Orthostatic Vital Signs [RC] ASDIRECTED Care 10/25/20 10:20 Active Labs: Laboratory Tests 10/25/20 10/25/20 10/25/20 Range/Units 10:23 10:23 10:23 WBC 7.95 (4.0-11.0) K/uL RBC 5.46 (4.50-5.90) M/uL Hgb 16.5 (13.0-17.0) g/dL Hct 46.2 (38.0-50.0) % MCV 84.6 (80.0-98.0) fL MCH 30.2 (27.0-32.0) pg MCHC 35.7 (31.0-37.0) g/dL RDW Std Deviation 42.1 (28.0-62.0) fl RDW Coeff of Do 14 (11.0-15.0) % Plt Count 197 (150-400) K/uL MPV 9.80 (7.40-12.00) fL Neut % (Auto) 70.6 (48.0-80.0) % Lymph % (Auto) 22.0 (16.0-40.0) % Meagher % (Auto) 4.0 (0.0-15.0) % Eos % (Auto) 3.1 (0.0-7.0) % Baso % (Auto) 0.3 (0.0-1.5) % Neut # (Auto) 5.6 (1.4-5.7) K/uL Lymph # (Auto) 1.8 (0.6-2.4) K/uL Meagher # (Auto) 0.3 (0.0-0.8) K/uL Eos # (Auto) 0.3 (0.0-0.7) K/uL Baso # (Auto) 0.0 (0.0-0.1) K/uL Nucleated RBC % 0.0 /100WBC Nucleated RBCs # 0 K/uL VBG pH (7.31-7.41) VBG pCO2 (41-51) mmHG VBG pO2 mmHG VBG HCO3 (23-28) mEq/L VBG Total CO2 (24-29) mmol/L VBG Base Excess (-2.0-3.0) Sodium 134 L (136-148) mmol/L Potassium 4.0 (3.5-5.1) mmol/L Chloride 101 (98-107) mmol/L Carbon Dioxide 19.2 L (21.0-32.0) mmol/L BUN 12 (7.0-18.0) mg/dL Creatinine 0.8 (0.8-1.3) mg/dL Est Cr Clr Drug Dosing TNP Estimated GFR (MDRD) > 60.0 ml/min Glucose 222 H (74-106) mg/dL Calcium 9.1 (8.5-10.1) mg/dL Total Bilirubin 0.8 (0.2-1.0) mg/dL AST 37 (15-37) IU/L ALT 42 (14-63) IU/L Alkaline Phosphatase 90 (46-116) U/L Troponin I < 0.050 (0.000-0.056) ng/mL Total Protein 7.9 (6.4-8.2) g/dL Albumin 3.6 (3.4-5.0) g/dL Globulin 4.3 H (2.6-4.0) g/dL Albumin/Globulin Ratio 0.8 L (0.9-1.6) Lipase 124 (73-393) U/L Urine Color Urine Appearance Urine pH (5.0-8.0) Ur Specific Baxley (1.001-1.035) Urine Protein (NEGATIVE) mg/dL Urine Glucose (UA) (NEGATIVE) mg/dL Urine Ketones (NEGATIVE) mg/dL Urine Occult Blood (NEGATIVE) Urine Nitrite (NEGATIVE) Urine Bilirubin (NEGATIVE) Urine Urobilinogen (<2.0) EU/dL Ur Leukocyte Esterase (NEGATIVE) Urine Opiates Screen (NEGATIVE) Ur Oxycodone Screen (NEGATIVE) Urine Methadone Screen (NEGATIVE) Ur Barbiturates Screen (NEGATIVE) Ur Phencyclidine Scrn (NEGATIVE) Ur Amphetamine Screen (NEGATIVE) U Methamphetamines Scrn (NEGATIVE) U Benzodiazepines Scrn (NEGATIVE) U Cocaine Metab Screen (NEGATIVE) U Marijuana (THC) Screen (NEGATIVE) Ketones NEGATIVE (NEG) 10/25/20 10/25/20 10/25/20 Range/Units 12:28 12:28 13:30 WBC (4.0-11.0) K/uL RBC (4.50-5.90) M/uL Hgb (13.0-17.0) g/dL Hct (38.0-50.0) % MCV (80.0-98.0) fL MCH (27.0-32.0) pg MCHC (31.0-37.0) g/dL RDW Std Deviation (28.0-62.0) fl RDW Coeff of Do (11.0-15.0) % Plt Count (150-400) K/uL MPV (7.40-12.00) fL Neut % (Auto) (48.0-80.0) % Lymph % (Auto) (16.0-40.0) % Meagher % (Auto) (0.0-15.0) % Eos % (Auto) (0.0-7.0) % Baso % (Auto) (0.0-1.5) % Neut # (Auto) (1.4-5.7) K/uL Lymph # (Auto) (0.6-2.4) K/uL Meagher # (Auto) (0.0-0.8) K/uL Eos # (Auto) (0.0-0.7) K/uL Baso # (Auto) (0.0-0.1) K/uL Nucleated RBC % /100WBC Nucleated RBCs # K/uL VBG pH (7.31-7.41) VBG pCO2 (41-51) mmHG VBG pO2 mmHG VBG HCO3 (23-28) mEq/L VBG Total CO2 (24-29) mmol/L VBG Base Excess (-2.0-3.0) Sodium (136-148) mmol/L Potassium (3.5-5.1) mmol/L Chloride (98-107) mmol/L Carbon Dioxide (21.0-32.0) mmol/L BUN (7.0-18.0) mg/dL Creatinine (0.8-1.3) mg/dL Est Cr Clr Drug Dosing Estimated GFR (MDRD) ml/min Glucose (74-106) mg/dL Calcium (8.5-10.1) mg/dL Total Bilirubin (0.2-1.0) mg/dL AST (15-37) IU/L ALT (14-63) IU/L Alkaline Phosphatase (46-116) U/L Troponin I < 0.050 (0.000-0.056) ng/mL Total Protein (6.4-8.2) g/dL Albumin (3.4-5.0) g/dL Globulin (2.6-4.0) g/dL Albumin/Globulin Ratio (0.9-1.6) Lipase (73-393) U/L Urine Color YELLOW Urine Appearance CLEAR Urine pH 8.0 (5.0-8.0) Ur Specific Baxley 1.015 (1.001-1.035) Urine Protein NEGATIVE (NEGATIVE) mg/dL Urine Glucose (UA) 500 H (NEGATIVE) mg/dL Urine Ketones >=80 (NEGATIVE) mg/dL Urine Occult Blood NEGATIVE (NEGATIVE) Urine Nitrite NEGATIVE (NEGATIVE) Urine Bilirubin NEGATIVE (NEGATIVE) Urine Urobilinogen 1.0 (<2.0) EU/dL Ur Leukocyte Esterase NEGATIVE (NEGATIVE) Urine Opiates Screen NEGATIVE (NEGATIVE) Ur Oxycodone Screen POSITIVE (NEGATIVE) Urine Methadone Screen NEGATIVE (NEGATIVE) Ur Barbiturates Screen NEGATIVE (NEGATIVE) Ur Phencyclidine Scrn NEGATIVE (NEGATIVE) Ur Amphetamine Screen NEGATIVE (NEGATIVE) U Methamphetamines Scrn NEGATIVE (NEGATIVE) U Benzodiazepines Scrn NEGATIVE (NEGATIVE) U Cocaine Metab Screen NEGATIVE (NEGATIVE) U Marijuana (THC) Screen POSITIVE (NEGATIVE) Ketones (NEG) 10/25/20 Range/Units 13:30 WBC (4.0-11.0) K/uL RBC (4.50-5.90) M/uL Hgb (13.0-17.0) g/dL Hct (38.0-50.0) % MCV (80.0-98.0) fL MCH (27.0-32.0) pg MCHC (31.0-37.0) g/dL RDW Std Deviation (28.0-62.0) fl RDW Coeff of Do (11.0-15.0) % Plt Count (150-400) K/uL MPV (7.40-12.00) fL Neut % (Auto) (48.0-80.0) % Lymph % (Auto) (16.0-40.0) % Meagher % (Auto) (0.0-15.0) % Eos % (Auto) (0.0-7.0) % Baso % (Auto) (0.0-1.5) % Neut # (Auto) (1.4-5.7) K/uL Lymph # (Auto) (0.6-2.4) K/uL Meagher # (Auto) (0.0-0.8) K/uL Eos # (Auto) (0.0-0.7) K/uL Baso # (Auto) (0.0-0.1) K/uL Nucleated RBC % /100WBC Nucleated RBCs # K/uL VBG pH 7.36 (7.31-7.41) VBG pCO2 46 (41-51) mmHG VBG pO2 < 30 mmHG VBG HCO3 26 (23-28) mEq/L VBG Total CO2 27 (24-29) mmol/L VBG Base Excess 0.0 (-2.0-3.0) Sodium (136-148) mmol/L Potassium (3.5-5.1) mmol/L Chloride (98-107) mmol/L Carbon Dioxide (21.0-32.0) mmol/L BUN (7.0-18.0) mg/dL Creatinine (0.8-1.3) mg/dL Est Cr Clr Drug Dosing Estimated GFR (MDRD) ml/min Glucose (74-106) mg/dL Calcium (8.5-10.1) mg/dL Total Bilirubin (0.2-1.0) mg/dL AST (15-37) IU/L ALT (14-63) IU/L Alkaline Phosphatase (46-116) U/L Troponin I (0.000-0.056) ng/mL Total Protein (6.4-8.2) g/dL Albumin (3.4-5.0) g/dL Globulin (2.6-4.0) g/dL Albumin/Globulin Ratio (0.9-1.6) Lipase (73-393) U/L Urine Color Urine Appearance Urine pH (5.0-8.0) Ur Specific Baxley (1.001-1.035) Urine Protein (NEGATIVE) mg/dL Urine Glucose (UA) (NEGATIVE) mg/dL Urine Ketones (NEGATIVE) mg/dL Urine Occult Blood (NEGATIVE) Urine Nitrite (NEGATIVE) Urine Bilirubin (NEGATIVE) Urine Urobilinogen (<2.0) EU/dL Ur Leukocyte Esterase (NEGATIVE) Urine Opiates Screen (NEGATIVE) Ur Oxycodone Screen (NEGATIVE) Urine Methadone Screen (NEGATIVE) Ur Barbiturates Screen (NEGATIVE) Ur Phencyclidine Scrn (NEGATIVE) Ur Amphetamine Screen (NEGATIVE) U Methamphetamines Scrn (NEGATIVE) U Benzodiazepines Scrn (NEGATIVE) U Cocaine Metab Screen (NEGATIVE) U Marijuana (THC) Screen (NEGATIVE) Ketones (NEG) Meds: Medications Discontinued Medications Generic Name Dose Route Start Last Admin Trade Name Shelly PRN Reason Stop Dose Admin Aspirin 324 mg 10/25/20 10:18 10/25/20 10:32 Aspirin 81 Mg Tab.Chew PO 10/25/20 10:19 324 mg ONETIME ONE Administration Al Hydroxide/Mg Hydroxide 15 0 ml 10/25/20 10:20 10/25/20 10:32 ml/ Lidocaine HCl 5 ml PO 10/25/20 10:21 20 each ONETIME ONE Administration Sodium Chloride 1,000 mls @ 999 mls/hr 10/25/20 10:18 10/25/20 10:32 Normal Saline IV 10/25/20 11:18 999 mls/hr BOLUS ONE Administration Departure - Departure Time of Disposition: 14:40 Disposition: Home, Self-Care 01 Clinical Impression: Dizziness, Hyperglycemia - Discharge Information Referrals: PCP,Not In Area [Primary Care Provider] - Forms: ED Department Discharge Additional Instructions: The following information is given to patients seen in the emergency department who are being discharged to home. This information is to outline your options for follow-up care. We provide all patients seen in our emergency department with a follow-up referral. The need for follow-up, as well as the timing and circumstances, are variable depending upon the specifics of your emergency department visit. If you don't have a primary care physician on staff, we will provide you with a referral. We always advise you to contact your personal physician following an emergency department visit to inform them of the circumstance of the visit and for follow-up with them and/or the need for any referrals to a consulting specialist. The emergency department will also refer you to a specialist when appropriate. This referral assures that you have the opportunity for follow-up care with a specialist. All of these measure are taken in an effort to provide you with opti mal care, which includes your follow-up. Under all circumstances we always encourage you to contact your private physician who remains a resource for coordinating your care. When calling for follow-up care, please make the office aware that this follow-up is from your recent emergency room visit. If for any reason you are refused follow-up, please contact the [facility] Emergency Department at and asked to speak to the emergency department charge nurse. [facility] [address] [place] [id number] [place] [address] 1. You can alternate ibuprofen and Tylenol as directed for pain and discomfort. 2. Follow-up with a primary care provider and signal apprentice as discussed. Return to the ED as needed and as discussed. Sepsis Event Note (ED) - Evaluation Sepsis Screening Result: No Definite Risk - Focused Exam Vital Signs: Vital Signs Pulse Resp BP Pulse Ox 10/25/20 11:14 67 14 162/78 H 97 - My Orders Last 24 Hours: My Active Orders 10/25/20 10:18 Cardiac Monitoring [RC] . DIRECTED EKG Documentation Completion [RC] STAT 10/25/20 10:20 Orthostatic Vital Signs [RC] ASDIRECTED - Assessment/Plan Last 24 Hours: My Active Orders 10/25/20 10:18 Cardiac Monitoring [RC] . DIRECTED EKG Documentation Completion [RC] STAT 10/25/20 10:20 Orthostatic Vital Signs [RC] ASDIRECTED
[2020-10-26 01:36] VITALS: BP 120/72
[2020-10-26 01:39] VITALS: PULSE 71
== END 2020-10-25 15:15 | disposition home or self-care (01) ==
LOC: MW.ED 10:12
DX: E11.65 Type 2 diabetes mellitus with hyperglycemia (principal); I10 Essential (primary) hypertension; Z88.6 Allergy status to analgesic agent; Z88.8 Allergy status to other drugs, medicaments and biological substances; Z79.82 Long term (current) use of aspirin; Z79.4 Long term (current) use of insulin; Z79.01 Long term (current) use of anticoagulants; Z79.899 Other long term (current) drug therapy
CPT/HCPCS: 36415; 71045; 80053; 80305; 81003; 82009; 82803; 83690; 84484; 85025; 93005; 99284; A9270; J7030

== ENCOUNTER 2021-01-12 09:28 | Emergency (ER) | payer MEDICAID ==
[2021-01-12 10:17] VITALS: BP 123/67; PULSE 80
--- NOTE | 2021-01-12 10:20 | EDM.PDOC ---
ED HPI GENERAL MEDICAL PROBLEM - General Chief Complaint: General Stated Complaint: MEDICAL CLEARANCE/ HELP WITH MEDS Time Seen by Provider: 01/12/21 09:58 Source of Information: Reports: Patient - History of Present Illness INITIAL COMMENTS - FREE TEXT/NARRATIVE: Patient presents to the emergency department for medical clearance and refill of his medications. Patient has a history of diabetes [place], and heart disease and pulmonary vein thrombosis. When patient prompted he states that several days ago he was having some intermittent chest pain. Intermittent diaphoresis that he has had since he started having his chest pain. No exacerbating or alleviating factors - Related Data Allergies Allergy/AdvReac Type Severity Reaction Status Date / Time ibuprofen [From Motrin] Allergy Mild Rash Verified 01/12/21 09:50 Home Meds: Home Meds Apixaban [Eliquis] 5 mg PO DAILY 01/12/21 [History] Aspirin 81 mg PO DAILY 01/12/21 [History] Diclofenac Sodium 4 gm TOP ASDIRECTED 01/12/21 [History] Empagliflozin [Jardiance] 10 mg PO DAILY 01/12/21 [History] Gabapentin [Neurontin] 600 mg PO TID 01/12/21 [History] Insulin Aspart [NovoLOG] 100 unit SQ ASDIRECTED 01/12/21 [History] Insulin Detemir [Levemir] 100 unit SQ ASDIRECTED 01/12/21 [History] Omeprazole 20 mg PO DAILY 01/12/21 [History] Pregabalin 50 mg PO DAILY 01/12/21 [History] Saxagliptin HCl [Onglyza] 5 mg PO DAILY 01/12/21 [History] Sertraline [Zoloft] 25 mg PO DAILY 01/12/21 [History] amLODIPine Besylate [Amlodipine Besylate] 5 mg PO DAILY 01/12/21 [History] atenoloL [Atenolol] 25 mg PO DAILY 01/12/21 [History] atorvaSTATin [Lipitor] 20 mg PO DAILY 01/12/21 [History] atorvaSTATin [Lipitor] 20 mg PO DAILY 01/12/21 [History] lisinopriL [Lisinopril] 40 mg PO DAILY 01/12/21 [History] lisinopriL [Lisinopril] 40 mg PO DAILY 01/12/21 [History] metFORMIN [Glucophage] 1,000 mg PO BID 01/12/21 [History] ED ROS GENERAL - Review of Systems Review Of Systems: See Below Constitutional: Reports: Diaphoresis. Denies: Fever, Chills Cardiovascular: Reports: Other (Several days ago chest pain) ED EXAM, GENERAL - Physical Exam Exam: See Below Free Text/Narrative:: CONSTITUTIONAL: well appearing in no acute distress SKIN: Warm, dry, and intact without rash HENT: Normocephalic, atraumatic, PULMONARY: clear to ausculation bilaterally. No rales, rhonchi, wheezing CARDIOVASCULAR: regular rate, No murmur, rubs, or gallops GASTROINTESTINAL: soft, nondistended, nontender NEUROLOGIC: normal speech, II-XII intact. light touch/5/5 power equal and symmetric in upper and lower extremities without deficit MUSCULOSKELETAL: no gross deformities, atraumatic PSYCHIATRIC: normal mood and affect #1 Interpretation Time: 10:32 EKG Interpretation Comments: 60, normal sinus rhythm, ST elevation in inferior leads and lateral precordial leads similar to EKG on 10/23. 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 He thinks out of [place] to [facility] called and Pt has seen cardiology. Dr. Quezada contacted. Pt with cath in September with minimal disease and 50% lesion diagonal branch. Dr. Quezada states he has an EKG on 10/15 that looks exactly like the one I sent him. Inf ST elevation not consistent anatomically with potential diagonal branch lesion. States pt can be medically cleared. Patient presents with medical clearance. Patient does have concerning EKG findings but they are similar to old EKGs. I spoke to the patient's cardiology team that reviewed old EKG and angiogram findings and states the patient can be medically cleared. There is no angiographic lesion in the anatomic distribution of concern. Even if the patient has had intermittent chest pain for several days at this time with negative troponin he is cleared from a acute [place] standpoint. Patient with a large number of medications and in his large case of medications he has several repeat medications, he has them from different providers. I have encouraged him to reorganize his medications and to seek one primary care doctor to organize go through and prescribe his medications from a single source. Patient is walking around using the bathroom without any symptoms or diaphoresis or chest discomfort. There is no immediate need for medication refill as patient does have anticoagulation and some of his blood pressure medications. I do not want to create difficulties by having another provider prescribing him additional medications that he may or may not need. He is instructed that if he leaves police custody to follow-up with a single primary care doctor the next several days to reassess his medications and if he is in long term for a significant amount of time than the long term physician can go through to help organize his medications. Last Recorded V/S: Last Vital Signs Temp 37.0 C 01/12/21 09:58 Pulse 80 01/12/21 09:58 Resp 19 01/12/21 09:58 BP 123/67 01/12/21 09:58 Pulse Ox 96 01/12/21 09:58 - Orders/Labs/Meds Labs: Laboratory Tests 01/12/21 01/12/21 Range/Units 10:26 10:26 WBC 8.05 (4.0-11.0) K/uL RBC 5.07 (4.50-5.90) M/uL Hgb 15.2 (13.0-17.0) g/dL Hct 43.4 (38.0-50.0) % MCV 85.6 (80.0-98.0) fL MCH 30.0 (27.0-32.0) pg MCHC 35.0 (31.0-37.0) g/dL RDW Std Deviation 43.1 (28.0-62.0) fl RDW Coeff of Do 14 (11.0-15.0) % Plt Count 230 (150-400) K/uL MPV 9.80 (7.40-12.00) fL Neut % (Auto) 74.9 (48.0-80.0) % Lymph % (Auto) 14.9 L (16.0-40.0) % [place] % (Auto) 6.3 (0.0-15.0) % Eos % (Auto) 3.5 (0.0-7.0) % Baso % (Auto) 0.4 (0.0-1.5) % Neut # (Auto) 6.0 H (1.4-5.7) K/uL Lymph # (Auto) 1.2 (0.6-2.4) K/uL [place] # (Auto) 0.5 (0.0-0.8) K/uL Eos # (Auto) 0.3 (0.0-0.7) K/uL Baso # (Auto) 0.0 (0.0-0.1) K/uL Nucleated RBC % 0.0 /100WBC Nucleated RBCs # 0 K/uL Sodium 138 (136-148) mmol/L Potassium 4.8 (3.5-5.1) mmol/L Chloride 102 (98-107) mmol/L Carbon Dioxide 23.2 (21.0-32.0) mmol/L BUN 24 H (7.0-18.0) mg/dL Creatinine 1.2 (0.8-1.3) mg/dL Est Cr Clr Drug Dosing 75.82 mL/min Estimated GFR (MDRD) > 60.0 ml/min Glucose 348 H (74-106) mg/dL Calcium 8.5 (8.5-10.1) mg/dL Total Bilirubin 0.4 (0.2-1.0) mg/dL AST 30 (15-37) IU/L ALT 48 (14-63) IU/L Alkaline Phosphatase 81 (46-116) U/L Troponin I < 0.050 (0.000-0.056) ng/mL Total Protein 7.5 (6.4-8.2) g/dL Albumin 3.8 (3.4-5.0) g/dL Globulin 3.7 (2.6-4.0) g/dL Albumin/Globulin Ratio 1.0 (0.9-1.6) Departure - Departure Time of Disposition: 11:41 Disposition: DC/Tfer to Court of Law En 21 Condition: Good Clinical Impression: Medical clearance for incarceration - Discharge Information Referrals: Virginia Hayes MD [Primary Care Provider] - Forms: ED Department Discharge Additional Instructions: Return for any change or worsening condition. The following information is given to patients seen in the emergency department who are being discharged to home. This information is to outline your options for follow-up care. We provide all patients seen in our emergency department with a follow-up referral. The need for follow-up, as well as the timing and circumstances, are variable depending upon the specifics of your emergency department visit. If you don't have a primary care physician on staff, we will provide you with a referral. We always advise you to contact your personal physician following an emergency department visit to inform them of the circumstance of the visit and for follow-up with them and/or the need for any referrals to a consulting specialist. The emergency department will also refer you to a specialist when appropriate. This referral assures that you have the opportunity for follow-up care with a specialist. All of these measure are taken in an effort to provide you with optimal care, which includes your follow-up. Primary care clinics in the area: [facility] [address] [place] [address] [place] [address] Under all circumstances we always encourage you to contact your private physician who remains a resource for coordinating your care. When calling for follow-up care, please make the office aware that this follow-up is from your recent emergency room visit. If for any reason you are refused follow-up, please contact the Emergency Department at and asked to speak to the emergency department charge nurse. Sepsis Event Note (ED) - Focused Exam Vital Signs: Vital Signs Temp Pulse Resp BP Pulse Ox 01/12/21 09:58 37.0 C 80 19 123/67 96
[2021-01-12 11:24] LABS: BLOOD UREA NITROGEN,BUN 24 mg/dL (7.0-18.0); CARBON DIOXIDE,CO2 23.2 mmol/L (21.0-32.0); CHLORIDE,CL 102 mmol/L (98-107); GLUCOSE RANDOM 348 mg/dL (74-106); POTASSIUM,K 4.8 mmol/L (3.5-5.1); SODIUM,NA 138 mmol/L (136-148)
== END 2021-01-12 11:52 ==
LOC: MERGE 09:28 → MW.ED 09:28
DX: Z02.89 Encounter for other administrative examinations (principal); Z88.8 Allergy status to other drugs, medicaments and biological substances; Z79.01 Long term (current) use of anticoagulants; Z79.82 Long term (current) use of aspirin; Z79.4 Long term (current) use of insulin; Z79.899 Other long term (current) drug therapy
CPT/HCPCS: 36415; 80053; 84484; 85025; 93005; 99283-25